=== PATIENT | male | born 1940 | race African-American/Black ===

== ENCOUNTER 2019-05-23 17:53 | Inpatient (IN) | payer OTHER ==
[~2019-05-23] VITALS: Ht 188 cm; Wt 108.0 kg
[~2019-05-23 17:53] MED LIST: TYLENOL325 MG ORAL
[2019-05-23 18:00] VITALS: BP 130/80
--- NOTE | 2019-05-23 18:00 | NUR ---
ED Nurse Note: pt brought in by ADRIAN from [facility] due to tachycardia. pt current HR on monitor is 123. per ems report, pt's roommate is currently being tested for CIVID19. result is still pending. pt is alert x3. noted with right sided weakness.
[2019-05-23] MEDS ORDERED: ALLOPURINOL100 M1 ORAL (18:04)
[2019-05-23] MEDS ORDERED: VITAMIN D310 MC1 PO (18:11)
[2019-05-23] MEDS ORDERED: METFORMIN HCL500 M1 ORAL (18:11)
[2019-05-23] MEDS ORDERED: ASPIRIN325 MG ORAL (18:11)
[2019-05-23] MEDS ORDERED: ZESTRIL20 MG ORAL (18:11)
[2019-05-23] MEDS ORDERED: POTASSIUM CHLO10 MEQ ORAL (18:11)
[2019-05-23] MEDS ORDERED: VITAMIN D34000 UNIT PO (18:11)
[2019-05-23] MEDS ORDERED: VITAMIN C500 M1 ORAL (18:11)
[2019-05-23] MEDS ORDERED: FUROSEMIDE20 M1 ORAL (18:11)
[2019-05-23] MEDS ORDERED: DEPAKOTE250 MG PO (18:11)
[2019-05-23] MEDS ORDERED: MULTIVITAMINS1 EAC8 ORAL (18:11)
[2019-05-23] MEDS ORDERED: ATORVASTATIN CA40 MG ORAL (18:11)
--- NOTE | 2019-05-23 18:16 | Emergency Room Report ---
History of Present Illness General Chief Complaint: General Complaint Source: Patient, Medical Record, EMS Present Illness HPI Patient presents from nursing facility was found to be tachycardic and the patient's roommate has Reportedly tested positive for covid-19 patient was also reported to have mild cough Denies any chest pain denies any vomiting or diarrhea denies any abdominal pain Allergies: Coded Allergies: No Known Allergies (Unverified , 01/11/16) COVID-19 Screening Contact w/high risk pt: Yes Recent Travel to affected area: No Experienced COVID-19 symptoms?: Yes COVID-19 symptoms experienced: Cough Patient History Past Medical History: see triage record Reviewed Nursing Documentation: PMH: Agreed; PSxH: Agreed Nursing Documentation-PMH Past Medical History: No History, Except For Hx Cardiac Problems: Yes - HLD, Peripheral vascular disease, Hx Hypertension: Yes Hx COPD: Yes Hx Diabetes: Yes Hx Cerebrovascular Accident: Yes Review of Systems All Other Systems: negative except mentioned in HPI Physical Exam Vital Signs Date Time Temp Pulse Resp B/P (MAP) Pulse Ox O2 Delivery O2 Flow Rate FiO2 05/23/19 17:53 137 18 129/82 (98) 05/23/19 18:00 98.6 99 Room Air Sp02 EP Interpretation: reviewed, normal General Appearance: no apparent distress Head: normocephalic, atraumatic Eyes: bilateral eye PERRL, bilateral eye EOMI ENT: hearing grossly normal, EOM grossly intact Neck: supple Respiratory: crackles - In both lower lobes Cardiovascular #1: tachycardia Gastrointestinal: non tender, soft Musculoskeletal: normal inspection Neurologic: alert Skin: no rash Lymphatic: normal inspection Procedures Critical Care Time Critical Care Time 50 minutes for critical presentation and concern for possible covid-19 concern for rapid deterioration and possible respiratory failure not including any procedural time Medical Decision Making Diagnostic Impression: Primary Impression: URI (upper respiratory infection) Additional Impressions: UTI (urinary tract infection) Sepsis ER Course Patient is a fairly complex patient with multiple differential to consideration including but not limited to cardiac cardiopulmonary and vascular emergencies Other differential such as infectious process, covid-19 also entertained Patient has blood work initiated testing performed Urine sample does show significant UTI patient's lactic acid was also elevated Further hydration was performed and admitted for further inpatient care Labs Test 05/23/19 18:20 White Blood Count 6.4 K/UL (4.8-10.8) Red Blood Count 5.09 M/UL (4.70-6.10) Hemoglobin 14.8 G/DL (14.2-18.0) Hematocrit 47.0 % (42.0-52.0) Mean Corpuscular Volume 92 FL (80-99) Mean Corpuscular Hemoglobin 29.1 PG (27.0-31.0) Mean Corpuscular Hemoglobin Concent 31.5 G/DL (32.0-36.0) Red Cell Distribution Width 14.8 % (11.6-14.8) Platelet Count 232 K/UL (150-450) Mean Platelet Volume 7.5 FL (6.5-10.1) Neutrophils (%) (Auto) 73.3 % (45.0-75.0) Lymphocytes (%) (Auto) 13.1 % (20.0-45.0) Monocytes (%) (Auto) 9.8 % (1.0-10.0) Eosinophils (%) (Auto) 1.6 % (0.0-3.0) Basophils (%) (Auto) 2.2 % (0.0-2.0) Urine Color Pale yellow Urine Appearance Turbid Urine pH 5 (4.5-8.0) Urine Specific [place] 1.010 (1.005-1.035) Urine Protein 2+ (NEGATIVE) Urine Glucose (UA) Negative (NEGATIVE) Urine Ketones 1+ (NEGATIVE) Urine Blood 5+ (NEGATIVE) Urine Nitrite Positive (NEGATIVE) Urine Bilirubin Negative (NEGATIVE) Urine Urobilinogen Normal MG/DL (0.0-1.0) Urine Leukocyte Esterase 3+ (NEGATIVE) Urine RBC Tntc /HPF (0 - 0) Urine WBC Tntc /HPF (0 - 0) Urine Squamous Epithelial Cells None /LPF (NONE/OCC) Urine Bacteria Moderate /HPF (NONE) Sodium Level 144 MMOL/L (136-145) Potassium Level 4.4 MMOL/L (3.5-5.1) Chloride Level 104 MMOL/L (98-107) Carbon Dioxide Level 28 MMOL/L (21-32) Anion Gap 13 mmol/L (5-15) Blood Urea Nitrogen 21 mg/dL (7-18) Creatinine 1.4 MG/DL (0.55-1.30) Estimat Glomerular Filtration Rate 59.3 mL/min (>60) Glucose Level 125 MG/DL (74-106) Lactic Acid Level 3.00 mmol/L (0.4-2.0) Calcium Level 9.7 MG/DL (8.5-10.1) Total Bilirubin 0.4 MG/DL (0.2-1.0) Aspartate Amino Transf (AST/SGOT) 18 U/L (15-37) Alanine Aminotransferase (ALT/SGPT) 25 U/L (12-78) Alkaline Phosphatase 96 U/L (46-116) Total Creatine Kinase 82 U/L (26-308) Creatine Kinase MB 0.9 NG/ML (0.0-3.6) Creatine Kinase MB Relative Index 1.0 Troponin I 0.005 ng/mL (0.000-0.056) Pro-B-Type Natriuretic Peptide 298 pg/mL (0-125) Total Protein 8.2 G/DL (6.4-8.2) Albumin 3.7 G/DL (3.4-5.0) Globulin 4.5 g/dL Albumin/Globulin Ratio 0.8 (1.0-2.7) Rhythm Strip Diag. Results EP Interpretation: yes Rate: 88 Rhythm: NSR, no PVC's, no ectopy Chest X-Ray Diagnostic Results Chest X-Ray Diagnostic Results : Chest X-Ray Ordered: Yes # of Views/Limited/Complete: 1 View Indication: Chest Pain EP Interpretation: Yes Interpretation: no consolidation, no effusion, no pneumothorax Impression: No acute disease - Cardiomegaly Electronically Signed by: Robin Summers DO Last Vital Signs Date Time Temp Pulse Resp B/P (MAP) Pulse Ox O2 Delivery O2 Flow Rate FiO2 05/23/19 18:00 123 18 Room Air 05/23/19 18:00 98.6 130/80 99 Status: improved Disposition: ADMITTED INPATIENT Condition: Serious Robin Summers DO May 23, 2019 18:16
--- NOTE | 2019-05-23 18:25 | NUR ---
ED Nurse Note: IV line established, pt on monitoring tech, blood sample, urine sample, Covid swab collected and sent down to sent down to lab .
--- NOTE | 2019-05-23 18:43 | NUR ---
ED Nurse Note: cxr being taken at bedside.
[2019-05-23 19:08] LABS: ANION GAP 13 mmol/L (5-15); BLOOD UREA NITROGEN 21 mg/dL (7-18); CALCIUM 9.7 MG/DL (8.5-10.1); CARBON DIOXIDE 28 MMOL/L (21-32); CHLORIDE 104 MMOL/L (98-107); CREATININE 1.4 MG/DL (0.55-1.30); POTASSIUM 4.4 MMOL/L (3.5-5.1); SODIUM 144 MMOL/L (136-145)
--- NOTE | 2019-05-23 19:10 | NUR ---
ED Nurse Note: report given ЕЛЕНА servin. endorsed plan opf care.
[2019-05-23 19:13] LABS: BASOPHILS % (AUTO) 2.2 % (0.0-2.0); EOSINOPHILS % (AUTO) 1.6 % (0.0-3.0); HEMOGLOBIN 14.8 G/DL (14.2-18.0); LYMPHOCYTES % (AUTO) 13.1 % (20.0-45.0); MEAN CORPUSCULAR VOLUME 92 FL (80-99); MONOCYTES % (AUTO) 9.8 % (1.0-10.0); NEUTROPHILS % (AUTO) 73.3 % (45.0-75.0); PLATELET COUNT 232 K/UL (150-450); RED BLOOD COUNT 5.09 M/UL (4.70-6.10); RED CELL DISTRIBUTION WIDTH 14.8 % (11.6-14.8); WHITE BLOOD COUNT 6.4 K/UL (4.8-10.8)
[2019-05-23 19:16] LABS: APPEARANCE,URINE TURBID; BILIRUBIN, URINE NEGATIVE (NEGATIVE); COLOR,URINE PALE YELLOW; GLUCOSE, URINE (UA) NEGATIVE (NEGATIVE); KETONES,URINE 1+ (NEGATIVE); LEUKOCYTE ESTERASE ,URINE 3+ (NEGATIVE); NITRITE,URINE POSITIVE (NEGATIVE); PH,URINE 5 (4.5-8.0); PROTEIN,URINE 2+ (NEGATIVE); UROBILINOGEN,URINE NORMAL MG/DL (0.0-1.0)
[2019-05-23 19:20] LABS: ALANINE AMINOTRANSFERASE 25 U/L (12-78); ALBUMIN 3.7 G/DL (3.4-5.0); ALBUMIN/GLOBULIN RATIO 0.8 (1.0-2.7); ALKALINE PHOSPHATASE 96 U/L (46-116); ASPARTATE AMINO TRANSFERASE 18 U/L (15-37); BILIRUBIN,TOTAL 0.4 MG/DL (0.2-1.0); CKMB 0.9 NG/ML (0.0-3.6); CREATINE KINASE 82 U/L (26-308)
[2019-05-23] MEDS ORDERED: Sodium Chloride 2,800 ML IVLG ONE (19:30)
[2019-05-23] MEDS ORDERED: cefTRIAXone 1 GM in NS 55 ML IVPB ONE (19:45)
--- NOTE | 2019-05-23 20:10 | NUR ---
ED Nurse Note: Lactic reflux #1 drawn and sent to lab
[2019-05-23 20:55] VITALS: BP 123/74
--- NOTE | 2019-05-23 21:47 | NUR ---
ED Nurse Note: Lactic reflux #2 drawn and sent to lab
[2019-05-23 22:44] VITALS: BP 132/76
--- NOTE | 2019-05-23 23:30 | NUR ---
ED Nurse Note: Pt resting in bed, vss no ss of distress noted. no adverse reactions noted.
--- NOTE | 2019-05-23 23:45 | NUR ---
ED Nurse Note: Pt placed in hospital bed. Vss no ss of distress noted.
[2019-05-24] VITALS (10 sets, daily range): BP systolic 108–151; BP diastolic 59–96
--- NOTE | 2019-05-24 01:12 | NUR ---
ED Nurse Note: pt resting in bed, vss no ss of distress noted.
--- NOTE | 2019-05-24 03:43 | NUR ---
ED Nurse Note: pt resting in bed, vss no ss of distress noted.
--- NOTE | 2019-05-24 05:55 | NUR ---
ED Nurse Note: pt resting in bed, vss no ss of distress noted. awaiting bed availablity.
--- NOTE | 2019-05-24 07:00 | NUR ---
ED Nurse Note: Received patient in bed, patient is alert awake resting in bed, patient on a monitor, vitals stable, see flowsheet.
[2019-05-24] MEDS ORDERED: cefTRIAXone 1 GM in NS 55 ML IVPB ONE (08:45)
--- NOTE | 2019-05-24 08:50 | NUR ---
ED Nurse Note: patient's HR is ST 120's, patient's rectal temp 102.6F, notified to Dr. Macedo. patient had 1 soft BM, cleaned him and kept him dry.
[2019-05-24] MEDS ORDERED: Acetaminophen 650 MG SUPP RECTAL ONE (09:00)
--- NOTE | 2019-05-24 09:46 | Diagnostic Imaging Report ---
Indication: Cough Technique: One view of the chest Comparison: none Findings: The heart is enlarged. Lungs and pleural spaces are clear. The aorta is tortuous and calcified. Upper mediastinum is prominent, probably due to ectatic vasculature and related to body habitus.. Impression: Cardiomegaly. No acute process
--- NOTE | 2019-05-24 09:48 | NUR ---
ED Nurse Note: Dr Thrasher at bedside.
--- NOTE | 2019-05-24 14:19 | NUR ---
ED Nurse Note: REPORT GIVEN TO ЕЛЕНА BARRIGA
--- NOTE | 2019-05-24 14:25 | NUR ---
ED Nurse Note: patient transferred to SDU on ACLS protocol on a library monitor, with all of his belongings. report given to Karlie Golden, endorsed all plan of care to Karlie GOLDEN.
--- NOTE | 2019-05-24 14:45 | NUR ---
NURSE NOTES: Received report from Germaine Rojas RN. Patient admitted to SDU for URI/COVID-19 r/o. Patient alert to name only, confused, combative, uncooperative. ST 104 on ekg monitor tech. On room air, respirations even and unlabored. Patient is incontinent of bowel and bladder, noted with MASD on sacral and scrotal area. Condom catheter placed. Cydney-care done. Left AC 20g saline lock patent and asymptomatic. Patient placed on droplet/contact precautions for COVID r/o. Bed locked in lowest position with side rails up x 3. All needs attended to. Call light within reach. Will continue to monitor. Dr. Thrasher contacted for admission orders.
[2019-05-24] MEDS: Piperacillin/Tazobactam 3.375 GM in NS 110 ML IVPB SCH ×2 (17:40→21:12)
[2019-05-24] MEDS: metFORMIN 500mg tab ORAL SCH (17:40)
--- NOTE | 2019-05-24 19:14 | NUR ---
HAND-OFF: Report given to Tanja Moody RN, using SBAR.
--- NOTE | 2019-05-24 19:28 | NUR ---
NURSE NOTES: Received report form
--- NOTE | 2019-05-24 19:28 | NUR ---
NURSE NOTES: Received report from Chico Escobar, pt. in bed awake, pt. appears to be a/o x's 2- able to make needs known, no signs or symptoms of acute cardiac or respiratory distress noted, bed alarm on, side rails up x's3 and safety brakes engaged, pt. appears to be sating well on room air- no distress noted, pt. has condom cath intact and draining to gravity, LAC 20G IV intact and patent running NS at 75cc/hr, HOB elevated, safety measures continued, will continue with plan of care.
[2019-05-24] MEDS: Heparin 5000 units/ml inj SUBQ SCH (21:15)
[2019-05-24] MEDS: Atorvastatin 80mg tab ORAL SCH (21:15)
--- NOTE | 2019-05-24 21:22 | NUR ---
NURSE NOTES: patients IV is at LAC- IV continues to beep as pt. bends arm- tried inserting another IV- pt. becoming increasingly combative swinging his arm trying to strike me- and not allowing me to insert IV.
--- NOTE | 2019-05-24 21:30 | NUR ---
NURSE: patients IV is at LAC- IV continues to beep as pt. bends arm- tried inserting another IV- pt. becoming increasingly combative swinging his arm trying to strike me- and not allowing me to insert IV- Left message for DR. Thrasher- awaiting for call back from doctor.
--- NOTE | 2019-05-24 21:32 | NUR ---
NURSE NOTES: Trying to complete shift mandatory- pt. states he does not wear dentures- and belonging list not found in chart- pt. is wearing prescription glasses.
[2019-05-25] VITALS: BP 142/73
--- NOTE | 2019-05-25 03:49 | NUR ---
NURSE NOTES: pt. refused lab work- and asked to be left alone- pt. teaching done - pt. continued, to refuse to get blood work done and becoming combative if asked to have blood work done.
[2019-05-25 04:00] VITALS: BP 139/71
[2019-05-25] MEDS: Piperacillin/Tazobactam 3.375 GM in NS 110 ML IVPB SCH ×3 (05:03→21:26)
--- NOTE | 2019-05-25 07:04 | NUR ---
HAND-OFF: Report given to Adam Rn, pt. remains stable and no signs of distress noted. Nurse aware to f/u on any abnormal am labs.
--- NOTE | 2019-05-25 07:14 | NUR ---
HAND-OFF: Report given to Chico Armendariz, pt. remains stable and no signs of distress noted. Nurse aware to f/u on any abnormal am labs. Assignment changed.
[2019-05-25 08:00] VITALS: BP 156/72
--- NOTE | 2019-05-25 08:51 | NUR ---
NURSE NOTES: Dr. Thrasher was notified positive COVID-19 by night RN,will notify Dr. Conrad positive blood culture
[2019-05-25] MEDS: Lisinopril 20mg tab ORAL SCH (09:00)
--- NOTE | 2019-05-25 09:26 | NUR ---
RD ASSESSMENT & RECOMMENDATIONS SEE CARE ACTIVITY FOR COMPLETE ASSESSMENT DAILY ESTIMATED NEEDS: Needs based on Cardiac, DM, sepsis 92gk abw 20-25 kcals/kg 8183-4172 total kcals 1-2 g protein/kg 92-184 g total protein Fluid per MD, on lasix NUTRITION DIAGNOSIS: Increased pro needs r/t sepsis and wound care as evidenced by febrile on adm (102.6), elev LA, pt w/ sacral and scrotal skin breakdown, h/o CVA, eval is pending. CURRENT DIET: CCHO MED PO DIET RECOMMENDATIONS: CCHO MED/ Low Na diet ADDITIONAL RECOMMENDATIONS: 1) On lasix, maintain calibrated bed scale wts 2) Updated lytes as able 3) Rec NISS w/ bed side BG checking, -> Obtain HgA1C for eval 4) H/o CVA, consider ADVERTISING ACCOUNT EXECUTIVE eval for appropriate texture 5) Wound care: F/up w/ eval-> add WILLOW BID 6) Monitor po intake, need for snacks/ supplements
--- NOTE | 2019-05-25 09:57 | NUR ---
CASE MANAGEMENT:REVIEW 05/23/19 @753 [id number] YR OLD MALE BIBA FROM [facility] CC: TACHYCARDIA. ROOMMATE HOSPITALIZED TO R/O COVID-19 SI: URI.SEPSIS. UTI. EVALUATE FOR COVID-19 102.6 137 18 108/59 99% ON RA BUN+21 CR+1.4 LACTIC ACID+3.00 AND 3.60 IS: 2L NS BOLUS IV ROCEPHIN URINE CX CHEST XRAY BLOOD CX COVID-19 : TO STEPDOWN UNIT ON 05/24/19 @ 1406 DCP: FROM [facility] Addendum: 05/25/19 at 1024 by DENNY MATHEWS LVN LVN 05/25/19...ADDENDUM.....COVID-19 POSITIVE
[2019-05-25] MEDS ORDERED: Azithromycin 250mg tab ORAL SCH (10:00)
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
[2019-05-25] MEDS: Ascorbic Acid 500mg tab ORAL SCH (10:37)
[2019-05-25] MEDS: Multivitamin w/Minerals tab ORAL SCH (10:37)
[2019-05-25] MEDS: metFORMIN 500mg tab ORAL SCH ×3 (10:39→18:12)
[2019-05-25] MEDS: Allopurinol 100mg Tab ORAL SCH (10:40)
[2019-05-25] MEDS: Heparin 5000 units/ml inj SUBQ SCH ×2 (10:43→20:04)
--- NOTE | 2019-05-25 10:54 | NUR ---
*-* INSURANCE *-* ALL CLINICALS AND REVIEWS HAVE BEEN FAXED TO: [employer] REF#[id number] CM: OMER # [phone] EXT [id number] FAX# [phone] REVIEWS/CLINICALS
[2019-05-25 12:00] VITALS: BP 131/71
[2019-05-25] MEDS: Vancomycin 750 MG in NS 275 ML IVPB SCH (14:20)
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
--- NOTE | 2019-05-25 17:18 | NUR ---
NURSE NOTES:WOUND CARE NOTES:Pt presented on admission with mixed pink epithelial and partial thickness shearing sacrum ,L buttocks and R ischium. Tx.Plan: Apply Moisture Barrier Paste to buttocks with Each incontinence care. Cover Sacrum with Optifoam drsg. Change every 3 days and prn. Apply Cavilon Skin Barrier to both heels. Cover each heel with Optifoam drsg. Change every 7 days and prn. Reposition at least every 2hours or as tolerated. Off-load heels with pillow.
--- NOTE | 2019-05-25 19:10 | NUR ---
NURSE NOTES: Received report from Chico Armendariz, pt. in bed awake, pt. appears to be a/o x's 2- able to make needs known, no signs or symptoms of acute cardiac or respiratory distress noted, bed alarm on, side rails up x's3 and safety brakes engaged, comfort measures provided, pt. appears to be sating well on room air- no distress noted, pt. has condom cath intact and draining to gravity, LAC 20G IV intact and patent, Lt. hand 24G IV intact and patent running NS at 75cc/hr, HOB elevated, safety measures continued, will continue with plan of care.
[2019-05-25 20:00] VITALS: BP 108/58
[2019-05-25] MEDS: Atorvastatin 80mg tab ORAL SCH (20:04)
[2019-05-26] VITALS (7 sets, daily range): BP systolic 119–154; BP diastolic 59–93
[2019-05-26] MEDS: Vancomycin 750 MG in NS 275 ML IVPB SCH (01:28)
--- NOTE | 2019-05-26 02:14 | NUR ---
NURSE NOTES: During rounds pt. noted to have a fever- warm to touch, temp 102.4 orally- Tylenol administered and cooling measures provided- will continue to monitor pt. and with plan of care. Pt. remains stable.
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
[2019-05-26] MEDS: Piperacillin/Tazobactam 3.375 GM in NS 110 ML IVPB SCH ×3 (05:19→21:37)
--- NOTE | 2019-05-26 05:29 | NUR ---
NURSE NOTES: Attempted to draw labs for blood work with another nurse Rosa who attempted- the draw- unsuccessful as pt. is being combative and swinging arm up to strike- tried couple attempts- but unsuccessful- also during attempt patients IV from Left hand 24G came out at bedside- pt. does have another IV at . , but not allowing me to insert another IV and becoming increasingly combative. Will notify lab to try lab draw.
--- NOTE | 2019-05-26 06:53 | NUR ---
HAND-OFF: Report given to Aris Rn, pt. remains stable and no signs of distress noted. Nurse aware to f/u on any abnormal am labs.
--- NOTE | 2019-05-26 07:25 | NUR ---
NURSE NOTES: Dr. Thrasher at nurse station, informed MD that patient refused lactic acid labs this morning. Dr. Thrasher acknowledged, no new orders at this time. Will continue to monitor patient.
[2019-05-26] MEDS: Heparin 5000 units/ml inj SUBQ SCH ×2 (08:57→20:40)
--- NOTE | 2019-05-26 08:59 | General Progress Note ---
Assessment/Plan Problem List: (1) COVID-19 virus detected ICD Codes: U07.1 - COVID-19 SNOMED: 702797398 (2) Facial laceration ICD Codes: S01.81XA - Laceration without foreign body of other part of head, initial encounter SNOMED: 406802551 (3) Status post CVA ICD Codes: Z86.73 - Personal history of transient ischemic attack (TIA), and cerebral infarction without residual deficits SNOMED: 585413419 (4) Sepsis ICD Codes: A41.9 - Sepsis, unspecified organism SNOMED: 12245854 (5) UTI (urinary tract infection) ICD Codes: N39.0 - Urinary tract infection, site not specified SNOMED: 60989921 (6) SOB (shortness of breath) ICD Codes: R06.02 - Shortness of breath SNOMED: 522048056 Status: stable Assessment/Plan: abx per id follow up cultures hydroxychloriqine and azithromax for covid o2 resp rx as needed bp rx antiplt rx Subjective ROS Limited/Unobtainable: No Constitutional: Reports: malaise, weakness HEENT: Reports: no symptoms Cardiovascular: Reports: no symptoms Respiratory: Reports: cough Gastrointestinal/Abdominal: Reports: no symptoms Genitourinary: Reports: no symptoms Neurologic/Psychiatric: Reports: anxiety, emotional problems, pre-existing deficit Endocrine: Reports: no symptoms Hematologic/Lymphatic: Reports: no symptoms Allergies: Coded Allergies: No Known Allergies (Unverified , 01/11/16) All Systems: reviewed and negative except above Subjective There are no overnight events. Patient continues to spike intermittent fevers. He has been compliant with medications but is refusing his labs this morning. He has a mild nonproductive cough. He denies any chest pain or shortness of breath. Cardiology and ID noted. Objective Last 24 Hour Vital Signs Date Time Temp Pulse Resp B/P (MAP) Pulse Ox O2 Delivery O2 Flow Rate FiO2 05/26/19 04:00 Room Air 05/26/19 04:00 99.9 114 18 126/69 (88) 97 05/26/19 03:34 111 05/26/19 02:46 100.3 05/26/19 02:46 100.3 05/26/19 02:13 102.4 05/26/19 00:00 Room Air 05/26/19 00:00 98.0 94 18 119/68 (85) 96 05/25/19 23:31 117 05/25/19 20:00 Room Air 05/25/19 20:00 98.1 109 18 108/58 (75) 95 05/25/19 19:04 92 05/25/19 16:00 Room Air 05/25/19 16:00 105 05/25/19 12:00 Room Air 05/25/19 12:00 98.0 105 17 131/71 (91) 94 05/25/19 11:29 107 05/25/19 09:00 156/76 Intake and Output 05/25/19 05/26/19 19:00 07:00 Intake Total 300 ml 1251.666 ml Output Total 400 ml Balance 300 ml 851.666 ml Intake Oral 225 ml IV Total 75 ml 1251.666 ml Output Urine Total 400 ml # Voids 2 2 # Bowel Movements 3 3 Height (Feet): 6 Height (Inches): 2.00 Weight (Pounds): 238 General Appearance: WD/WN, alert, obese Neck: supple Cardiovascular: normal rate Respiratory/Chest: chest wall non-tender, lungs clear, normal breath sounds, no respiratory distress, no accessory muscle use Abdomen: normal bowel sounds, non tender, soft, no organomegaly, no mass Edema: no edema noted Arm (L), no edema noted Arm (R), no edema noted Leg (L), no edema noted Leg (R), no edema noted Pedal (L), no edema noted Pedal (R), no edema noted Generalized Edema: trace edema Neurologic: responsive, motor weakness Elian Thrasher MD May 26, 2019 08:59
[2019-05-26] MEDS: Azithromycin 250mg tab ORAL SCH (09:12)
[2019-05-26] MEDS: Multivitamin w/Minerals tab ORAL SCH (09:12)
[2019-05-26] MEDS: Ascorbic Acid 500mg tab ORAL SCH (09:13)
[2019-05-26] MEDS: Allopurinol 100mg Tab ORAL SCH (09:13)
[2019-05-26] MEDS: metFORMIN 500mg tab ORAL SCH ×3 (09:13→17:50)
[2019-05-26] MEDS: Lisinopril 20mg tab ORAL SCH (09:13)
--- NOTE | 2019-05-26 10:32 | NUR ---
NURSE NOTES: Dr. Frieda Diamond at nurse station made aware of positive ESBL urine. Dr. Frieda Diamond acknowledged and gave no new orders at this time. Will continue to monitor patient.
--- NOTE | 2019-05-26 10:57 | Infectious Diseases Prog Note ---
Assessment/Plan Assessment/Plan A; 1. COVID-19 disease 2. Urinary tract infection with E.coli 3. Positive blood culture likely contaminatiion 4. Diabetes. 5. Hypertension. 6. Chronic obstructive pulmonary disease. PLAN: 1. Continue hydroxychloroquine and azithromycin. 2. Continue contact isolation. 3. Continue Zosyn. 4. Discontinue IV vancomycin. Subjective ROS Limited/Unobtainable: Yes Respiratory: Reports: dry cough; Denies: productive cough Allergies: Coded Allergies: No Known Allergies (Unverified , 01/11/16) Objective Vital Signs Last 24 Hour Vital Signs Date Time Temp Pulse Resp B/P (MAP) Pulse Ox O2 Delivery O2 Flow Rate FiO2 05/26/19 09:13 136/93 05/26/19 08:00 102 05/26/19 08:00 Room Air 05/26/19 08:00 99.5 117 18 136/93 (107) 97 05/26/19 04:00 Room Air 05/26/19 04:00 99.9 114 18 126/69 (88) 97 05/26/19 03:34 111 05/26/19 02:46 100.3 05/26/19 02:46 100.3 05/26/19 02:13 102.4 05/26/19 00:00 Room Air 05/26/19 00:00 98.0 94 18 119/68 (85) 96 05/25/19 23:31 117 05/25/19 20:00 Room Air 05/25/19 20:00 98.1 109 18 108/58 (75) 95 05/25/19 19:04 92 05/25/19 16:00 Room Air 05/25/19 16:00 105 05/25/19 12:00 Room Air 05/25/19 12:00 98.0 105 17 131/71 (91) 94 05/25/19 11:29 107 Height (Feet): 6 Height (Inches): 2.00 Weight (Pounds): 238 General Appearance: no acute distress HEENT: mucous membranes moist Respiratory/Chest: lungs clear Cardiovascular: normal rate Abdomen: soft, non tender Extremities: no edema Neurologic/Psychiatric: motor weakness, aphasia, other - in right side Microbiology Date/Time Source Procedure Growth Status 05/23/19 18:20 Blood Blood Culture - Preliminary NO GROWTH AFTER 48 HOURS Resulted 05/23/19 18:05 Blood Blood Culture - Preliminary Staphylococcus Sp Coag Neg Resulted 05/23/19 19:00 Nasopharynx Coronavirus COVID-19 PCR (JS) - Final Complete 05/23/19 18:25 Nasal Nares - Final Complete 05/23/19 18:25 Nasal Nares - Final Complete 05/23/19 18:20 Urine,Clean Catch Urine Culture - Final Escherichia Coli - Esbl Complete Laboratory Tests Test 05/26/19 09:50 Lactic Acid Level Pending Current Medications Medications (Trade) Dose Ordered Sig/Julita Route PRN Reason Start Time Stop Time Status Last Admin Dose Admin Acetaminophen (Tylenol) 650 mg Q6H PRN ORAL Prn Pain/Headache/Temp > 101 05/24/19 15:00 06/23/19 14:59 05/26/19 02:16 Allopurinol (Zyloprim) 100 mg DAILY ORAL 05/25/19 09:00 06/24/19 08:59 05/26/19 09:13 Ascorbic Acid (Vitamin C) 500 mg DAILY ORAL 05/25/19 09:00 06/24/19 08:59 05/26/19 09:13 Aspirin (ASA) 325 mg DAILY ORAL 05/25/19 09:00 07/09/19 08:59 05/26/19 09:13 Atorvastatin Calcium (Lipitor) 40 mg BEDTIME ORAL 05/24/19 21:00 08/22/19 20:59 05/25/19 20:04 Azithromycin (Zithromax) 250 mg DAILY ORAL 05/26/19 09:00 05/29/19 09:01 05/26/19 09:12 Divalproex Sodium (Depakote) 250 mg THREE TIMES A DAY ORAL 05/24/19 18:00 06/23/19 17:59 05/26/19 09:14 Heparin Sodium (Porcine) (Heparin 5000 units/ml) 5,000 units EVERY 12 HOURS SUBQ 05/24/19 21:00 07/08/19 20:59 05/25/19 20:04 Hydroxychloroquine Sulfate (Plaquenil) 200 mg BID ORAL 05/26/19 09:00 05/29/19 18:01 05/26/19 09:13 Lisinopril (PriniviL) 20 mg DAILY ORAL 05/25/19 09:00 06/24/19 08:59 05/26/19 09:13 Metformin HCl (Glucophage) 500 mg THREE TIMES A DAY ORAL 05/24/19 18:00 06/23/19 17:59 05/26/19 09:13 Multivitamins Therapeutic (Therapeutic Multivitamin) 1 ea DAILY ORAL 05/25/19 09:00 06/24/19 08:59 05/26/19 09:12 Piperacillin Sod/ Tazobactam Sod 3.375 gm/Sodium Chloride 110 ml @ 27.5 mls/hr EVERY 8 HOURS IVPB 05/24/19 15:00 05/29/19 14:59 05/26/19 05:19 Potassium Chloride (K-Dur) 10 meq DAILY ORAL 05/25/19 09:46 08/23/19 09:45 05/26/19 09:13 Sodium Chloride 1,000 ml @ 75 mls/hr [id number] IV 05/24/19 15:00 06/23/19 14:59 05/26/19 05:20 Vancomycin HCl (Vanco rx to dose) 1 ea DAILY PRN MISC Per rx protocol 05/25/19 10:45 06/24/19 10:44 Vancomycin HCl 750 mg/Sodium Chloride 275 ml @ 183.333 mls/hr Q12HR@0100,1300 IVPB 05/25/19 13:00 05/30/19 12:59 05/26/19 01:28 Juancho Diamond MD May 26, 2019 10:57
--- NOTE | 2019-05-26 11:48 | Consultation ---
Consult Note Consult Note DATE OF CONSULTATION: 05/26/2019 PULMONARY CONSULTATION CONSULTING PHYSICIAN: Ryan Quiroga M.D. REFERRING PHYSICIAN: Elian Thrasher M.D. REASON FOR CONSULTATION: COVID-19 pneumonia HISTORY OF PRESENTING ILLNESS: This is a 79-year-old gentleman who was at a [facility] facility where there has been an outbreak of COVID-19. He was found to be tachycardic. A chest x-ray was clear, but now he has been tested for COVID-19 and has been having fevers. Currently he is saturating well on low flow O2. PAST MEDICAL HISTORY: 1. History of hypertension. 2. Diabetes. 3. COPD. 4. Chronic kidney disease. 5. Stroke. SOCIAL HISTORY: He is a smoker. No history of alcohol and drug use. FAMILY HISTORY: Noncontributory. REVIEW OF SYSTEMS: Unable to obtain currently. MEDICATIONS: As an inpatient, he is on potassium, allopurinol, ascorbic acid, aspirin, Lasix, lisinopril, multivitamin, Lipitor, subcutaneous heparin, Depakote, metformin, Tylenol, Zosyn. ALLERGIES: No known drug allergies. PHYSICAL EXAMINATION: VITAL SIGNS: Temperature 98.2, T-max of 102.6, pulse 106, respiratory rate 18, and blood pressure 139/71. O2 saturation of 98%. LABORATORY AND DIAGNOSTIC DATA: White count 6.4, hemoglobin 14.8, hematocrit 47, MCV 92, platelet count 232,000 with neutrophils of 73%. Sodium 144, potassium 4.4, chloride 104, bicarb 28, BUN 21, creatinine 1.4. Glucose 125. Calcium 9.7. Total bilirubin 0.4, AST 18, ALT 25, alkaline phosphatase 96. CK of 82, CK-MB 0.9. Troponin 0.005. Beta natriuretic peptide 298. Total protein 8.2, albumin 3.7. UA is showing too numerous to count white cells. Coronavirus-19 PCR is positive. Nasal swab was negative for influenza A and B. Urine culture is showing ESBL E.coli. Blood culture is showing gram-positive cocci. Chest x-ray is showing no acute process. ASSESSMENT: This is a 79-year-old custodial resident with history of diabetes, hypertension, stroke, chronic obstructive pulmonary disease 1. COVID-19 pneumonia. 2. ESBL E.coli UTI 3. Positive blood cultures with gram-positive cocci. 4. Diabetes. 5. Hypertension. 6. Chronic obstructive pulmonary disease. PLAN: 1. Continue hydroxychloroquine and azithromycin. 2. Continue isolation. 3. Continue Zosyn and VAnco 4. O2 and pulmonary hygiene. Ryan Quiroga M.D. Ryan Quiroga MD May 26, 2019 11:48
--- NOTE | 2019-05-26 11:57 | NUR ---
*-* INSURANCE *-* ALL CLINICALS AND REVIEWS HAVE BEEN FAXED TO: [facility] REF#[id number] CM: OMER # [phone] EXT [phone] FAX# [phone] REVIEWS/CLINICALS
--- NOTE | 2019-05-26 13:24 | NUR ---
CASE MANAGEMENT: REVIEW 05/26/2019 SI:COVID-19 virus detected. Facial laceration. VS: T 102.4 HR 111 RR 18 B/P 126/69 SATS 97% ON RA LABS: LACTIC ACID 1 IS:NS @ 75 ML/HR ZOSYN IV Q8H LIPITOR POQHS PLAQUENIL PO BID ALLOPURINOL PO QD ASA PO QD LISINOPRIL PO QD AZITHROMYCIN PO QD K DUR PO QD DEPAKOTE PO TID SDU PLAN OF CARE: COVID TESTING ISO PRECAUTIONS
[2019-05-26] MEDS: Depakote 125mg Sprinkles ORAL SCH ×2 (13:30→17:50)
--- NOTE | 2019-05-26 18:15 | Consultation ---
DATE OF CONSULTATION: 05/26/2019 PULMONARY CONSULTATION CONSULTING PHYSICIAN: Christian Jurado M.D. REASON FOR CONSULTATION: COVID positive. HISTORY OF PRESENT ILLNESS: This is a 79-year-old male. The patient presented from the [facility]. The patient with an outbreak of COVID-19 and the patient now admitted and proved to be COVID positive. X-ray was clear. The patient with mild cough and fevers. Overall, the patient is admitted, on isolation. I was called to assist and evaluate. The patient also has underlying COPD. I was asked to follow up from a pulmonary standpoint and monitor and recommend further. The patient's medications were reviewed. The care was discussed with nursing staff. Care was discussed with primary care doctor and Infectious Disease. The patient's overall medication regimen reviewed. Allergies reviewed. PAST MEDICAL HISTORY: Notable for hypertension, diabetes, COPD, chronic kidney disease, stroke. SOCIAL HISTORY: The patient does have a smoking history. Nondrinker. longterm patient. FAMILY HISTORY: Noncontributory due to the above.. REVIEW OF SYSTEMS: Unable to obtain at present. MEDICATIONS: Reviewed and reconciled. ALLERGIES: Reviewed and reconciled. PHYSICAL EXAMINATION: GENERAL: Well-developed male. VITAL SIGNS: The patient with still persistent fevers up to 102.4, heart rate 117, blood pressure 136/93, respiratory rate 18, sats 97%. HEENT: Negative. Extraocular movements are grossly intact. Oropharynx is moist. NECK: Supple. No jugular venous distention. LUNGS: With moderate air entry. Occasional wheeze. CARDIAC: S1, S2. Tachycardic without murmurs, rubs, or gallops. ABDOMEN: Soft, nontender, nondistended. EXTREMITIES: No cyanosis, clubbing, or edema. NEUROLOGIC: The patient is grossly nonfocal. LABORATORY DATA: Reviewed and notable for an essentially normal CBC. Chem-panel, lactic acid of 3.6, BUN 21, creatinine 1.4. BNP 298. X-ray fairly negative. IMPRESSION: 1. COVID positive. 2. Persistent fever. 3. Associated sinus tachycardia. 4. Lactic acidemia. 5. UTI. 6. Positive blood cultures. 7. Diabetes. 8. Hypertension. 9. COPD without any clear exacerbation. RECOMMENDATIONS: 1. Supportive care. 2. Per Infectious Disease, hydroxychloroquine and azithromycin. 3. Contact isolation. 4. DVT prophylaxis. 5. Empiric antibiotics for urinary tract infection. 6. Respiratory care as outlined. Avoid nebulized therapy if possible to avoid aerosolization. 7. Monitor clinically for changes. 8. DVT prophylaxis and statin use for now. 9. We will follow clinically for changes to assist for any pulmonary deterioration on an as-needed basis. Christian Jurado M.D. DR: CITLALI JOB#: [id number] CC:
--- NOTE | 2019-05-26 19:09 | NUR ---
HAND-OFF: Report given to ЕЛЕНА Reynolds.
--- NOTE | 2019-05-26 19:11 | NUR ---
NURSE NOTES: Received report from Aris Rn, pt. in bed awake, pt. appears to be a/o x's 2- able to make needs known, no signs or symptoms of acute cardiac or respiratory distress noted, bed alarm on, side rails up x's3 and safety brakes engaged, comfort measures provided, pt. appears to be sating well on room air- no distress noted, LAC 20G IV intact and patent, Rt. 24G thumb running NS at 75cc/hr, HOB elevated, safety measures continued, comfort measures provided, will continue with plan of care.
--- NOTE | 2019-05-26 20:10 | NUR ---
NURSE NOTES: pt. has temp attempted to do cooling measures pt. refusing and throwing cold packs on floor- blankets removed off patient -will continue to monitor pt. and with plan of care.
[2019-05-26] MEDS: Atorvastatin 80mg tab ORAL SCH (20:11)
--- NOTE | 2019-05-26 20:30 | NUR ---
NURSE NOTES: notified Alexsander at pharmacy regarding dropped a Heparin bottle in patients room but unable to locate- per Alexsander campbell to pull out another heparin and return when found. Also pulled out Acetaminophen but too administer so wasted with another RN Melvin as it was already crushed.
--- NOTE | 2019-05-26 21:40 | NUR ---
NURSE NOTES: first Heparin- pulled out- found was stuck at foot of bed- returned to [facility].
[2019-05-27] VITALS (9 sets, daily range): BP systolic 111–142; BP diastolic 54–91
--- NOTE | 2019-05-27 00:15 | Progress Note ---
DATE: 05/26/2019 CARDIOLOGY PROGRESS NOTE SUBJECTIVE: No new events. Episodic fever spikes. Some cough and congestion. Monitored rhythm, sinus. QT interval remains unchanged. OBJECTIVE: VITAL SIGNS: Blood pressure 126/69, pulse 114, respirations 18, and T max 102.4. LUNGS: Scattered rhonchi. Good breath sounds. HEART: Regular rhythm. Rapid rate. Normal S1, S2. ABDOMEN: Soft. EXTREMITIES: No edema. LABORATORY DATA: Lactic acid is 1. IMPRESSION: 1. COVID-19 infection. 2. Lactic acidosis, recovered. 3. Sinus tachycardia. 4. Sepsis. 5. Hypertensive heart disease. 6. History of hyperlipidemia. PLAN: 1. Respiratory therapy. 2. Hold diuretics. 3. Continue to monitor QT interval while on hydroxychloroquine regimen. 4. Recheck chemistry panel. 5. Maintain therapeutic potassium and magnesium levels. Mateus Styles M.D. DR: PERLITA JOB#: [id number] CC:
--- NOTE | 2019-05-27 01:50 | NUR ---
NURSE NOTES: pt. showing sinus tachycardia on monitor- 140's- 150's assessed pt. - pt. stating he feels okay-no signs of distress noted, VS taken- EKG done- report showing A FIb with RVR- message left by Brad Golden- to DR. Styles- awaiting for call back from doctor. Will continue to monitor pt.
--- NOTE | 2019-05-27 02:16 | NUR ---
NURSE NOTES: Patient is in Afib w RVR with HR ranging through the 140s-170s. 12 lead EKG was taken and also showed Afib w/RVR. Blood pressure was 145/67 during Afib /RVR. Patient seems to be asymptomatic. Called Dr. Styles and left message regarding this event.
--- NOTE | 2019-05-27 02:19 | NUR ---
NURSE NOTES: Dr. Styles called back and again updated him on patients Afib with RVR events. Orders given for Cardizem 20mg IVP one time.
[2019-05-27] MEDS ORDERED: dilTIAZem HCl 25mg/5ml Inj IVP SCH (02:30)
--- NOTE | 2019-05-27 03:11 | NUR ---
NURSE NOTES: pt remains stable- heart rate 113-118- pt. remains stable and no signs of distress noted. Will continue to monitor pt. and with plan of care.
--- NOTE | 2019-05-27 03:14 | NUR ---
NURSE NOTES: attempted several times to do blood draw but unsuccessful- notified Govind- shear scrapman- but unable to draw- per his director.
[2019-05-27] MEDS: Piperacillin/Tazobactam 3.375 GM in NS 110 ML IVPB SCH ×3 (05:05→22:22)
--- NOTE | 2019-05-27 06:53 | NUR ---
HAND-OFF: Report given to Aris, Rn, pt. remains stable and no signs of distress noted. Nurse aware to f/u with lab to draw labs and f/u with DR. Styles regarding heart rate in 130's to 140's even after Cardizem IV push.
--- NOTE | 2019-05-27 07:06 | NUR ---
NURSE NOTES: Received report from ЕЛЕНА Reynolds. Patient is resting in bed, no distress noted. Sleeping, breathing is even and unlabored on room air. Observed no presence of pain or discomfort at this time. Per night nurse patient's heart rate was noted elevated and irregular heart rhythm. 12 lead EKG done, results read: "Atrial fibrillation with rapid ventricular response with premature ventricular or aberrantly conducted complexes.; Low voltage QRS." Rhythm strip in chart. Per night nurse Dr. Styles contacted and one time order of Cardizem 20 mg IV given. Patient heart rate on monitor still noted at 140s, irregular heart rhythm. Dr. Thrasher is at nurse state and made aware of situation. VS 134/[address] Thrasher do not need to do another 12 lead EKG at this time monitor on cardiac technologist, per MD will order Cardizem scheduled, informed MD morning labs not done yet - acknowledged. Will continue to monitor patient at this time.
--- NOTE | 2019-05-27 07:40 | General Progress Note ---
Assessment/Plan Problem List: (1) COVID-19 virus detected ICD Codes: U07.1 - COVID-19 SNOMED: 608186110 (2) Facial laceration ICD Codes: S01.81XA - Laceration without foreign body of other part of head, initial encounter SNOMED: 582601153 (3) Status post CVA ICD Codes: Z86.73 - Personal history of transient ischemic attack (TIA), and cerebral infarction without residual deficits SNOMED: 978326309 (4) Sepsis ICD Codes: A41.9 - Sepsis, unspecified organism SNOMED: 71895835 (5) UTI (urinary tract infection) ICD Codes: N39.0 - Urinary tract infection, site not specified SNOMED: 50793883 (6) SOB (shortness of breath) ICD Codes: R06.02 - Shortness of breath SNOMED: 625906277 Status: stable Assessment/Plan: abx per id follow up cultures hydroxychloriqine and azithromax for covid o2 resp rx as needed bp rx antiplt rx cardizem rx to d/w cards anticoagulation d/w poa perri- update on test results(covid+) and current rx plans Subjective ROS Limited/Unobtainable: No Constitutional: Reports: malaise, weakness HEENT: Reports: no symptoms Cardiovascular: Reports: no symptoms Respiratory: Reports: cough Gastrointestinal/Abdominal: Reports: no symptoms Genitourinary: Reports: no symptoms Neurologic/Psychiatric: Reports: no symptoms Endocrine: Reports: no symptoms Hematologic/Lymphatic: Reports: no symptoms Allergies: Coded Allergies: No Known Allergies (Unverified , 01/11/16) All Systems: reviewed and negative except above Subjective afib with rvr last night. just converted to sinus. still with cough. no cp/sob. still with fevers last night Objective Last 24 Hour Vital Signs Date Time Temp Pulse Resp B/P (MAP) Pulse Ox O2 Delivery O2 Flow Rate FiO2 05/27/19 04:00 98.9 112 18 135/73 (93) 96 05/27/19 04:00 Room Air 05/27/19 03:39 116 05/27/19 02:50 114 05/27/19 02:40 116 18 111/76 (88) 96 05/27/19 02:33 132 133/85 05/27/19 02:30 148 05/27/19 02:21 132 133/85 (101) 05/27/19 02:00 140 05/27/19 00:44 100.2 05/27/19 00:00 Room Air 05/27/19 00:00 92 05/27/19 00:00 101.2 85 18 142/68 (92) 96 05/26/19 20:42 102.2 92 18 154/88 (110) 96 05/26/19 20:00 102.2 92 18 154/88 (110) 96 05/26/19 20:00 Room Air 05/26/19 19:44 99 05/26/19 16:00 Room Air 05/26/19 16:00 89 05/26/19 16:00 99.1 95 18 121/59 (79) 95 05/26/19 12:00 98.6 94 18 137/72 (93) 97 05/26/19 12:00 Room Air 05/26/19 12:00 102 05/26/19 09:13 136/93 05/26/19 08:00 102 05/26/19 08:00 Room Air 05/26/19 08:00 99.5 117 18 136/93 (107) 97 Intake and Output 05/26/19 05/27/19 19:00 07:00 Intake Total 575 ml 954.5 ml Balance 575 ml 954.5 ml Intake Oral 500 ml IV Total 75 ml 954.5 ml # Voids 2 3 # Bowel Movements 3 4 Laboratory Tests 05/26/19 09:50: Lactic Acid Level 1.00 Height (Feet): 6 Height (Inches): 2.00 Weight (Pounds): 238 Objective General Appearance: WD/WN, alert, obese Neck: supple Cardiovascular: normal rate Respiratory/Chest: chest wall non-tender, lungs clear, normal breath sounds, no respiratory distress, no accessory muscle use Abdomen: normal bowel sounds, non tender, soft, no organomegaly, no mass Edema: no edema noted Arm (L), no edema noted Arm (R), no edema noted Leg (L), no edema noted Leg (R), no edema noted Pedal (L), no edema noted Pedal (R), no edema noted Generalized Edema: trace edema Neurologic: responsive, motor weakness Elian Thrasher MD May 27, 2019 07:40
[2019-05-27] MEDS ORDERED: dilTIAZem HCl 25mg/5ml Inj IVP ONE (08:00)
--- NOTE | 2019-05-27 08:01 | NUR ---
NURSE NOTES: Dr. Thrasher notified patient converted back to sinus rhythm with HR 99. Dr. Thrasher acknowledged and ordered to cancel cardizem order. Order discontinued. Will continue to monitor patient.
[2019-05-27] MEDS: Ascorbic Acid 500mg tab ORAL SCH (08:59)
[2019-05-27] MEDS: Multivitamin w/Minerals tab ORAL SCH (08:59)
[2019-05-27] MEDS: metFORMIN 500mg tab ORAL SCH ×3 (08:59→17:55)
[2019-05-27] MEDS: Lisinopril 20mg tab ORAL SCH (09:00)
[2019-05-27] MEDS: Depakote 125mg Sprinkles ORAL SCH ×3 (09:00→17:55)
[2019-05-27] MEDS: Allopurinol 100mg Tab ORAL SCH (09:00)
[2019-05-27] MEDS: Azithromycin 250mg tab ORAL SCH (09:00)
[2019-05-27] MEDS: Heparin 5000 units/ml inj SUBQ SCH ×2 (09:01→20:24)
--- NOTE | 2019-05-27 09:02 | NUR ---
RD ASSESSMENT & RECOMMENDATIONS SEE CARE ACTIVITY FOR COMPLETE ASSESSMENT DAILY ESTIMATED NEEDS: Needs based on Cardiac, DM, sepsis 92gk abw 20-25 kcals/kg 3950-7454 total kcals 1.25-2 g protein/kg 115-184 g total protein Fluid per MD, on lasix NUTRITION DIAGNOSIS: Increased pro needs r/t sepsis and wound care as evidenced by febrile on adm (102.6), elev LA, pt w/ sacral and scrotal skin breakdown, h/o CVA. CURRENT DIET: CCHO MED PO DIET RECOMMENDATIONS: CCHO MED/ Low Na diet ADDITIONAL RECOMMENDATIONS: 1) On lasix, maintain calibrated bed scale wts 2) Updated lytes as able 3) Rec NISS w/ bed side BG checking, -> Obtain HgA1C for eval 4) H/o CVA, consider HAIRSPRING STUDDER eval for appropriate texture 5) Wound care: F/up w/ eval-> add WILLOW BID + vit C 250mg qd 6) Add Glucerna 1 tetra w/ meals (250kcal/10g each)
--- NOTE | 2019-05-27 09:03 | NUR ---
NURSE NOTES: Patient refused morning lab draws today. Explained to patient x 3 of not having lab drawn, patient continued to refused. Respected patient rights. Contacted and left message for Dr. Thrasher regarding situation. Awaiting call back. Will continue to monitor patient.
--- NOTE | 2019-05-27 10:19 | Pulmonology Progress Note ---
Assessment/Plan Assessment/Plan ASSESSMENT: This is a 79[facility] with history of diabetes, hypertension, stroke, chronic obstructive pulmonary disease 1. COVID-19 pneumonia. 2. ESBL E.coli UTI 3. Positive blood cultures with gram-positive cocci. 4. Diabetes. 5. Hypertension. 6. Chronic obstructive pulmonary disease. PLAN: 1. Continue hydroxychloroquine and azithromycin. 2. Continue isolation. 3. Continue Zosyn and VAnco 4. O2 and pulmonary hygiene. Ryan Quiroga M.D. Subjective Interval Events: None new Constitutional: Reports: no symptoms HEENT: Repors: no symptoms Respiratory: Reports: no symptoms Cardiovascular: Reports: no symptoms Gastrointestinal/Abdominal: Reports: no symptoms Allergies: Coded Allergies: No Known Allergies (Unverified , 01/11/16) Objective Last 24 Hour Vital Signs Date Time Temp Pulse Resp B/P (MAP) Pulse Ox O2 Delivery O2 Flow Rate FiO2 05/27/19 09:00 132/91 05/27/19 08:00 99 05/27/19 08:00 Room Air 05/27/19 07:48 101.5 96 18 132/91 (105) 96 05/27/19 04:00 98.9 112 18 135/73 (93) 96 05/27/19 04:00 Room Air 05/27/19 03:39 116 05/27/19 02:50 114 05/27/19 02:40 116 18 111/76 (88) 96 05/27/19 02:33 132 133/85 05/27/19 02:30 148 05/27/19 02:21 132 133/85 (101) 05/27/19 02:00 140 05/27/19 00:44 100.2 05/27/19 00:00 Room Air 05/27/19 00:00 92 05/27/19 00:00 101.2 85 18 142/68 (92) 96 05/26/19 20:42 102.2 92 18 154/88 (110) 96 05/26/19 20:00 102.2 92 18 154/88 (110) 96 05/26/19 20:00 Room Air 05/26/19 19:44 99 05/26/19 16:00 Room Air 05/26/19 16:00 89 05/26/19 16:00 99.1 95 18 121/59 (79) 95 05/26/19 12:00 98.6 94 18 137/72 (93) 97 05/26/19 12:00 Room Air 05/26/19 12:00 102 Intake and Output 05/26/19 05/27/19 19:00 07:00 Intake Total 575 ml 954.5 ml Balance 575 ml 954.5 ml Intake Oral 500 ml IV Total 75 ml 954.5 ml # Voids 2 3 # Bowel Movements 3 4 General Appearance: no acute distress HEENT: normocephalic Respiratory/Chest: chest wall non-tender Cardiovascular: normal peripheral pulses Abdomen: normal bowel sounds Current Medications Medications (Trade) Dose Ordered Sig/Julita Route PRN Reason Start Time Stop Time Status Last Admin Dose Admin Acetaminophen (Tylenol) 650 mg Q6H PRN ORAL Prn Pain/Headache/Temp > 101 05/24/19 15:00 06/23/19 14:59 05/27/19 00:14 Allopurinol (Zyloprim) 100 mg DAILY ORAL 05/25/19 09:00 06/24/19 08:59 05/27/19 09:00 Ascorbic Acid (Vitamin C) 500 mg DAILY ORAL 05/25/19 09:00 06/24/19 08:59 05/27/19 08:59 Aspirin (ASA) 325 mg DAILY ORAL 05/25/19 09:00 07/09/19 08:59 05/27/19 08:59 Atorvastatin Calcium (Lipitor) 40 mg BEDTIME ORAL 05/24/19 21:00 08/22/19 20:59 05/26/19 20:11 Azithromycin (Zithromax) 250 mg DAILY ORAL 05/26/19 09:00 05/29/19 09:01 05/27/19 09:00 Divalproex Sodium (Depakote Sprinkles) 250 mg THREE TIMES A DAY ORAL 05/26/19 13:00 06/23/19 17:59 05/27/19 09:00 Heparin Sodium (Porcine) (Heparin 5000 units/ml) 5,000 units EVERY 12 HOURS SUBQ 05/24/19 21:00 07/08/19 20:59 05/27/19 09:01 Hydroxychloroquine Sulfate (Plaquenil) 200 mg BID ORAL 05/26/19 09:00 05/29/19 18:01 05/27/19 08:59 Lisinopril (PriniviL) 20 mg DAILY ORAL 05/25/19 09:00 06/24/19 08:59 05/27/19 09:00 Metformin HCl (Glucophage) 500 mg THREE TIMES A DAY ORAL 05/24/19 18:00 06/23/19 17:59 05/27/19 08:59 Multivitamins Therapeutic (Therapeutic Multivitamin) 1 ea DAILY ORAL 05/25/19 09:00 06/24/19 08:59 05/27/19 08:59 Nicotine (Nicoderm) 1 patch Q24H TDERMAL 05/27/19 08:00 08/25/19 07:59 05/27/19 08:59 Piperacillin Sod/ Tazobactam Sod 3.375 gm/Sodium Chloride 110 ml @ 27.5 mls/hr EVERY 8 HOURS IVPB 05/24/19 15:00 05/29/19 14:59 05/27/19 05:05 Potassium Chloride (K-Dur) 10 meq DAILY ORAL 05/25/19 09:46 08/23/19 09:45 05/27/19 09:00 Sodium Chloride 1,000 ml @ 75 mls/hr [id number] IV 05/24/19 15:00 06/23/19 14:59 05/27/19 09:06 Ryan Quiroga MD May 27, 2019 10:19
--- NOTE | 2019-05-27 11:11 | NUR ---
*-* INSURANCE *-* ALL CLINICALS AND REVIEWS HAVE BEEN FAXED TO: [facility] REF#[id number] CM: OMER # [phone] EXT [phone] FAX# [phone] REVIEWS/CLINICALS
--- NOTE | 2019-05-27 11:11 | NUR ---
*-* INSURANCE *-* ALL CLINICALS AND REVIEWS HAVE BEEN FAXED TO: RAJ[facility]K REF#[id number] CM: OMER # [phone] EXT [phone] FAX# [phone] REVIEWS/CLINICALS
--- NOTE | 2019-05-27 11:11 | Infectious Diseases Prog Note ---
Assessment/Plan Assessment/Plan antibiotics : zosyn 3.31.20 - hydroxychloroquine, azithromycin A 1. COVID 19 pneumonia 2. e.coli UTI 3. fever 4. diabetes mellitus 5. hypertension 6. COPD 7. + blood culture with coag neg staph likely contaminated P 1. continue hydroxychloroquine, azithromycin 2 more days 2. continue zosyn 3 more days 3. will follow up cultures 4. continue isolation Subjective Constitutional: Denies: fever, chills Respiratory: Reports: dry cough; Denies: shortness of breath Gastrointestinal/Abdominal: Denies: nausea, vomiting, diarrhea Musculoskeletal: Denies: pain Allergies: Coded Allergies: No Known Allergies (Unverified , 01/11/16) Objective Vital Signs Last 24 Hour Vital Signs Date Time Temp Pulse Resp B/P (MAP) Pulse Ox O2 Delivery O2 Flow Rate FiO2 05/27/19 09:00 132/91 05/27/19 08:00 99 05/27/19 08:00 Room Air 05/27/19 07:48 101.5 96 18 132/91 (105) 96 05/27/19 04:00 98.9 112 18 135/73 (93) 96 05/27/19 04:00 Room Air 05/27/19 03:39 116 05/27/19 02:50 114 05/27/19 02:40 116 18 111/76 (88) 96 05/27/19 02:33 132 133/85 05/27/19 02:30 148 05/27/19 02:21 132 133/85 (101) 05/27/19 02:00 140 05/27/19 00:44 100.2 05/27/19 00:00 Room Air 05/27/19 00:00 92 05/27/19 00:00 101.2 85 18 142/68 (92) 96 05/26/19 20:42 102.2 92 18 154/88 (110) 96 05/26/19 20:00 102.2 92 18 154/88 (110) 96 05/26/19 20:00 Room Air 05/26/19 19:44 99 05/26/19 16:00 Room Air 05/26/19 16:00 89 05/26/19 16:00 99.1 95 18 121/59 (79) 95 05/26/19 12:00 98.6 94 18 137/72 (93) 97 05/26/19 12:00 Room Air 05/26/19 12:00 102 Height (Feet): 6 Height (Inches): 2.00 Weight (Pounds): 238 Current Medications Medications (Trade) Dose Ordered Sig/Julita Route PRN Reason Start Time Stop Time Status Last Admin Dose Admin Acetaminophen (Tylenol) 650 mg Q6H PRN ORAL Prn Pain/Headache/Temp > 101 05/24/19 15:00 06/23/19 14:59 05/27/19 00:14 Allopurinol (Zyloprim) 100 mg DAILY ORAL 05/25/19 09:00 06/24/19 08:59 05/27/19 09:00 Ascorbic Acid (Vitamin C) 500 mg DAILY ORAL 05/25/19 09:00 06/24/19 08:59 05/27/19 08:59 Aspirin (ASA) 325 mg DAILY ORAL 05/25/19 09:00 07/09/19 08:59 05/27/19 08:59 Atorvastatin Calcium (Lipitor) 40 mg BEDTIME ORAL 05/24/19 21:00 08/22/19 20:59 05/26/19 20:11 Azithromycin (Zithromax) 250 mg DAILY ORAL 05/26/19 09:00 05/29/19 09:01 05/27/19 09:00 Divalproex Sodium (Depakote Sprinkles) 250 mg THREE TIMES A DAY ORAL 05/26/19 13:00 06/23/19 17:59 05/27/19 09:00 Heparin Sodium (Porcine) (Heparin 5000 units/ml) 5,000 units EVERY 12 HOURS SUBQ 05/24/19 21:00 07/08/19 20:59 05/27/19 09:01 Hydroxychloroquine Sulfate (Plaquenil) 200 mg BID ORAL 05/26/19 09:00 05/29/19 18:01 05/27/19 08:59 Lisinopril (PriniviL) 20 mg DAILY ORAL 05/25/19 09:00 06/24/19 08:59 05/27/19 09:00 Metformin HCl (Glucophage) 500 mg THREE TIMES A DAY ORAL 05/24/19 18:00 06/23/19 17:59 05/27/19 08:59 Multivitamins Therapeutic (Therapeutic Multivitamin) 1 ea DAILY ORAL 05/25/19 09:00 06/24/19 08:59 05/27/19 08:59 Nicotine (Nicoderm) 1 patch Q24H TDERMAL 05/27/19 08:00 08/25/19 07:59 05/27/19 08:59 Piperacillin Sod/ Tazobactam Sod 3.375 gm/Sodium Chloride 110 ml @ 27.5 mls/hr EVERY 8 HOURS IVPB 05/24/19 15:00 05/29/19 14:59 05/27/19 05:05 Potassium Chloride (K-Dur) 10 meq DAILY ORAL 05/25/19 09:46 08/23/19 09:45 05/27/19 09:00 Sodium Chloride 1,000 ml @ 75 mls/hr [id number] IV 05/24/19 15:00 06/23/19 14:59 05/27/19 09:06 Veronica Conrad MD May 27, 2019 11:10
--- NOTE | 2019-05-27 11:59 | NUR ---
CAUSTIC LOADERDUST COLLECTOR SI: PNA, TACHYCARDIA, FEVER T. 101.5 HR 148 RR 18 B/P 132/91 RA 98% IS: CARDIZEM IV X 1 ZOSYN IV IVF NS @ 75ML/HR ZITHROMAX PLAQUENIL STEP DOWN STATUS
--- NOTE | 2019-05-27 16:19 | NUR ---
NURSE NOTES: Patient noted desaturating to 85% on room air. No SOB noted, lung sounds clear, pt has history of COPD. Placed patient on 2LNC, SpO2 now 93%. Contacted and informed Dr. Thrasher of situation and inquired if okay to place patient on 2LNC. Dr. Thrasher stated "ok." Order entered, noted, and carried out. Will continue to monitor patient.
--- NOTE | 2019-05-27 19:18 | NUR ---
HAND-OFF: Report given to ЕЛЕНА Charles.
--- NOTE | 2019-05-27 19:19 | NUR ---
NURSE NOTES: Received patient from ЕЛЕНА Rogers. Patient is aaox 2 with forgetfulness, vss with a history of A-Fib. No acute distress witnessed. Patient is clean, semi-cooperative, on 2L NC saturating at 92% and on bus monitor. Patient is refusing lab draw, but is unclear as to why. Educated patient on the need for labs. Further education needed. All patients items are within reach, bed at its lowest position, call light in reach, and x3 bed rails are up. Will continue to monitor.
[2019-05-27] MEDS: Atorvastatin 80mg tab ORAL SCH (20:23)
[2019-05-28] VITALS: BP 153/78
--- NOTE | 2019-05-28 00:58 | NUR ---
NURSE NOTES: Patient is easily agitated when adjusting his oxygen. Patient desaturates to 80% when NC is off his face. Patient is saturating at 97% with 2L NC. No acte distress observed.
[2019-05-28 04:00] VITALS: BP 135/68
--- NOTE | 2019-05-28 04:02 | NUR ---
NURSE NOTES: No Epifix available in wound cart at this time. Will follow wound care order with available supplies.
--- NOTE | 2019-05-28 04:30 | NUR ---
NURSE NOTES: Patient aggressively refused lab draws. Patient is alert to name and place, but occasionally speaks inappropriately. Patient is calm after blood draw was stopped. Will continue to monitor.
--- NOTE | 2019-05-28 05:00 | Progress Note ---
DATE: 05/27/2019 CARDIOLOGY PROGRESS NOTE SUBJECTIVE: The patient developed rapid atrial fibrillation. Intravenous Cardizem was given. Ultimately, the patient's rate was controlled and sinus rhythm conversion spontaneously occurred. Monitor remains with sinus rhythm. The patient is on day 3 of hydroxychloroquine therapy. 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 OBJECTIVE: LUNGS: Bilateral breath sounds. Rhonchi. CARDIAC: Regular rhythm and rate. Normal S1 and S2. ABDOMEN: Soft. EXTREMITIES: Trace edema. LABORATORY DATA: Labs pending. IMPRESSION: 1. COVID infection with pneumonia. 2. Paroxysmal atrial fibrillation. 3. Recovered lactic acidosis. 4. Type 2 diabetes mellitus. PLAN: 1. Recheck laboratory studies. 2. Add beta-gino. 3. Monitor cardiac parameters while on hydroxychloroquine troponin level. Mateus Styles M.D. DR: MARTHA JOB#: [id number] CC:
[2019-05-28] MEDS: Piperacillin/Tazobactam 3.375 GM in NS 110 ML IVPB SCH ×3 (05:23→21:40)
--- NOTE | 2019-05-28 07:15 | NUR ---
HAND-OFF: Report given to ЕЛЕНА Hurst.
--- NOTE | 2019-05-28 07:18 | NUR ---
NURSE NOTES: Received report from ЕЛЕНА Charles. Patient is resting in bed, in stable condition. No s/sx of SOB, breathing is even and unlabored, on 3LNC. Denies any presence of pain or discomfort at this time. Bed is in lowest position. Brakes engaged. Call light is kept within easy reach. Will continue to monitor patient.
[2019-05-28 07:45] VITALS: BP 150/77
[2019-05-28] MEDS: Ascorbic Acid 500mg tab ORAL SCH (08:10)
[2019-05-28] MEDS: Heparin 5000 units/ml inj SUBQ SCH ×2 (08:10→20:04)
[2019-05-28] MEDS: Lisinopril 20mg tab ORAL SCH (08:11)
[2019-05-28] MEDS: Azithromycin 250mg tab ORAL SCH (08:12)
[2019-05-28] MEDS: Multivitamin w/Minerals tab ORAL SCH (08:13)
[2019-05-28] MEDS: metFORMIN 500mg tab ORAL SCH ×3 (08:13→17:12)
[2019-05-28] MEDS: Allopurinol 100mg Tab ORAL SCH (08:13)
[2019-05-28] MEDS: Metoprolol Succinate XL 50mg tab ORAL SCH (08:14)
[2019-05-28] MEDS: Depakote 125mg Sprinkles ORAL SCH (08:15)
--- NOTE | 2019-05-28 10:00 | NUR ---
NURSE NOTES: Dr. Thrasher seen and examined patient at bedside. This nurse spoke with MD at bedside. Informed MD that patient has refused lab draws this morning x 3 and again refused when Dr. Thrasher asked patient if okay to draw labs. Patient stated "No." Informed Dr. Thrasher of patient's temperature of 100.4 F axillary a repeat after medication and cooling measures, Dr. Thrasher acknowledged - no new orders given. Also informed Dr. Thrasher of patient's current SpO2 of 88-92% on 3L NC, Hx COPD; no s/sx of SOB, breathing is unlabored, lung sound clear; Dr. Thrasher also auscultated lung sounds. Dr. Thrasher acknowledged - no new orders given. Per Dr. Ruiz informed this nurse will discontinued Depakote today. Will monitor patient.
[2019-05-28] MEDS ORDERED: NS 275ml ONE (10:31)
[2019-05-28] MEDS ORDERED: Tubing IV Secondary IV ONE (10:31)
--- NOTE | 2019-05-28 11:18 | General Progress Note ---
Assessment/Plan Problem List: (1) COVID-19 virus detected ICD Codes: U07.1 - COVID-19 SNOMED: 302874369 (2) Facial laceration ICD Codes: S01.81XA - Laceration without foreign body of other part of head, initial encounter SNOMED: 215240098 (3) Status post CVA ICD Codes: Z86.73 - Personal history of transient ischemic attack (TIA), and cerebral infarction without residual deficits SNOMED: 190777739 (4) Sepsis ICD Codes: A41.9 - Sepsis, unspecified organism SNOMED: 23070222 (5) UTI (urinary tract infection) ICD Codes: N39.0 - Urinary tract infection, site not specified SNOMED: 19710516 (6) SOB (shortness of breath) ICD Codes: R06.02 - Shortness of breath SNOMED: 620802187 Status: stable Assessment/Plan: abx per id follow up cultures hydroxychloriqine and azithromax for covid o2 resp rx as needed bp rx antiplt rx cardizem rx compliance stressed d/w poa perri- update on test results(covid+) and current rx plans Subjective ROS Limited/Unobtainable: No Constitutional: Reports: fever, malaise, weakness HEENT: Reports: no symptoms Cardiovascular: Reports: no symptoms Respiratory: Reports: cough Gastrointestinal/Abdominal: Reports: no symptoms Genitourinary: Reports: no symptoms Neurologic/Psychiatric: Reports: anxiety, emotional problems Endocrine: Reports: no symptoms Hematologic/Lymphatic: Reports: no symptoms Allergies: Coded Allergies: No Known Allergies (Unverified , 01/11/16) All Systems: reviewed and negative except above Subjective There were no overnight events. Patient remains uncooperative with care. He is taking medications but refusing lab draws. He has had low-grade fevers. Intermittent cough. He denies any chest pain or shortness of breath. He is on 2 to 3 L of oxygen via nasal cannula. He at times remains agitated and combative. Objective Last 24 Hour Vital Signs Date Time Temp Pulse Resp B/P (MAP) Pulse Ox O2 Delivery O2 Flow Rate FiO2 05/28/19 08:46 100.4 05/28/19 08:14 89 150/77 05/28/19 08:11 150/77 05/28/19 08:00 Nasal Cannula 3.0 05/28/19 08:00 3.0 05/28/19 08:00 103 05/28/19 07:45 100.9 89 19 150/77 (101) 94 05/28/19 04:00 97 05/28/19 04:00 Nasal Cannula 3.0 05/28/19 04:00 99.0 96 19 135/68 (90) 91 05/28/19 00:00 98.8 100 18 153/78 (103) 94 05/28/19 00:00 Nasal Cannula 2.0 05/28/19 00:00 105 05/27/19 20:00 97 05/27/19 20:00 100.2 99 20 122/54 (76) 91 05/27/19 20:00 Nasal Cannula 2.0 05/27/19 16:00 101 05/27/19 16:00 Room Air 05/27/19 15:47 99.7 99 18 117/73 (88) 90 05/27/19 12:27 100.4 95 18 125/73 (90) 95 05/27/19 12:00 93 05/27/19 12:00 100.4 109 18 125/73 (90) 95 05/27/19 12:00 Room Air Intake and Output 05/27/19 05/28/19 19:00 07:00 Intake Total 846.74345 ml Balance 846.55620 ml IV Total 846.75071 ml # Voids 2 1 # Bowel Movements 5 3 Height (Feet): 6 Height (Inches): 2.00 Weight (Pounds): 238 Objective General Appearance: WD/WN, alert, obese Neck: supple Cardiovascular: normal rate Respiratory/Chest: chest wall non-tender, lungs clear, normal breath sounds, no respiratory distress, no accessory muscle use Abdomen: normal bowel sounds, non tender, soft, no organomegaly, no mass Edema: no edema noted Arm (L), no edema noted Arm (R), no edema noted Leg (L), no edema noted Leg (R), no edema noted Pedal (L), no edema noted Pedal (R), no edema noted Generalized Edema: trace edema Neurologic: responsive, motor weakness Elian Thrasher MD May 28, 2019 11:18
--- NOTE | 2019-05-28 11:56 | Pulmonology Progress Note ---
Assessment/Plan Assessment/Plan ASSESSMENT: This is a 79-year-old assisted resident with history of diabetes, hypertension, stroke, chronic obstructive pulmonary disease 1. COVID-19 pneumonia. 2. ESBL E.coli UTI 3. Positive blood cultures with gram-positive cocci. 4. Diabetes. 5. Hypertension. 6. Chronic obstructive pulmonary disease. PLAN: 1. Continue hydroxychloroquine and azithromycin. 2. Continue isolation. 3. Continue Zosyn and VAnco 4. O2 and pulmonary hygiene. Ryan Quiroga M.D. Subjective Interval Events: None new Constitutional: Reports: no symptoms HEENT: Repors: no symptoms Respiratory: Reports: no symptoms Cardiovascular: Reports: no symptoms Allergies: Coded Allergies: No Known Allergies (Unverified , 01/11/16) Objective Last 24 Hour Vital Signs Date Time Temp Pulse Resp B/P (MAP) Pulse Ox O2 Delivery O2 Flow Rate FiO2 05/28/19 08:46 100.4 05/28/19 08:14 89 150/77 05/28/19 08:11 150/77 05/28/19 08:00 Nasal Cannula 3.0 05/28/19 08:00 3.0 05/28/19 08:00 103 05/28/19 07:45 100.9 89 19 150/77 (101) 94 05/28/19 04:00 97 05/28/19 04:00 Nasal Cannula 3.0 05/28/19 04:00 99.0 96 19 135/68 (90) 91 05/28/19 00:00 98.8 100 18 153/78 (103) 94 05/28/19 00:00 Nasal Cannula 2.0 05/28/19 00:00 105 05/27/19 20:00 97 05/27/19 20:00 100.2 99 20 122/54 (76) 91 05/27/19 20:00 Nasal Cannula 2.0 05/27/19 16:00 101 05/27/19 16:00 Room Air 05/27/19 15:47 99.7 99 18 117/73 (88) 90 05/27/19 12:27 100.4 95 18 125/73 (90) 95 05/27/19 12:00 93 05/27/19 12:00 100.4 109 18 125/73 (90) 95 05/27/19 12:00 Room Air Intake and Output 05/27/19 05/28/19 19:00 07:00 Intake Total 846.11929 ml Balance 846.75252 ml IV Total 846.78738 ml # Voids 2 1 # Bowel Movements 5 3 General Appearance: no acute distress HEENT: normocephalic Respiratory/Chest: chest wall non-tender Cardiovascular: normal peripheral pulses Abdomen: normal bowel sounds Current Medications Medications (Trade) Dose Ordered Sig/Julita Route PRN Reason Start Time Stop Time Status Last Admin Dose Admin Acetaminophen (Tylenol) 650 mg Q6H PRN ORAL Prn Pain/Headache/Temp > 101 05/24/19 15:00 06/23/19 14:59 05/28/19 08:16 Allopurinol (Zyloprim) 100 mg DAILY ORAL 05/25/19 09:00 06/24/19 08:59 05/28/19 08:13 Ascorbic Acid (Vitamin C) 500 mg DAILY ORAL 05/25/19 09:00 06/24/19 08:59 05/28/19 08:10 Aspirin (ASA) 325 mg DAILY ORAL 05/25/19 09:00 07/09/19 08:59 05/28/19 08:13 Atorvastatin Calcium (Lipitor) 40 mg BEDTIME ORAL 05/24/19 21:00 08/22/19 20:59 05/27/19 20:23 Azithromycin (Zithromax) 250 mg DAILY ORAL 05/26/19 09:00 05/29/19 09:01 05/28/19 08:12 Divalproex Sodium (Depakote Sprinkles) 250 mg THREE TIMES A DAY ORAL 05/26/19 13:00 06/23/19 17:59 05/28/19 08:15 Heparin Sodium (Porcine) (Heparin 5000 units/ml) 5,000 units EVERY 12 HOURS SUBQ 05/24/19 21:00 07/08/19 20:59 05/28/19 08:10 Hydroxychloroquine Sulfate (Plaquenil) 200 mg BID ORAL 05/26/19 09:00 05/29/19 18:01 05/28/19 08:14 Lisinopril (PriniviL) 20 mg DAILY ORAL 05/25/19 09:00 06/24/19 08:59 05/28/19 08:11 Metformin HCl (Glucophage) 500 mg THREE TIMES A DAY ORAL 05/24/19 18:00 06/23/19 17:59 05/28/19 08:13 Metoprolol Succinate (Toprol XL) 50 mg DAILY ORAL 05/28/19 09:00 08/26/19 08:59 05/28/19 08:14 Multivitamins Therapeutic (Therapeutic Multivitamin) 1 ea DAILY ORAL 05/25/19 09:00 06/24/19 08:59 05/28/19 08:13 Nicotine (Nicoderm) 1 patch Q24H TDERMAL 05/27/19 08:00 08/25/19 07:59 05/28/19 07:28 Piperacillin Sod/ Tazobactam Sod 3.375 gm/Sodium Chloride 110 ml @ 27.5 mls/hr EVERY 8 HOURS IVPB 05/24/19 15:00 05/29/19 14:59 05/28/19 05:23 Sodium Chloride 1,000 ml @ 75 mls/hr [id number] IV 05/24/19 15:00 06/23/19 14:59 05/27/19 20:24 Ryan Quiroga MD May 28, 2019 11:56
[2019-05-28 12:00] VITALS: BP 140/76
--- NOTE | 2019-05-28 12:19 | NUR ---
NURSE NOTES: Dr. Quiroga at nurse station. Updated MD on pt status, patient desaturated on room air to SpO2 85%, placed on 3LNC now with SpO2 of 94%, has medical history of COPD, no SOB noted. Informed MD pt is eating and is on NS IVF at 75 ml/hr. Dr. Quiroga acknowledged and ordered to discontinued NS IVF and monitor. Noted. Will continue to monitor patient.
--- NOTE | 2019-05-28 12:24 | NUR ---
NURSE NOTES: Depakote Sprinkles 250 mg PO TID is still active, contacted and followed up with Dr. Thrasher regarding status of order and if still would like it to be discontinued. Dr. Thrasher acknowledged and ordered to discontinue Depakote Sprinkles 250 mg PO TID. Noted. Will continue to monitor patient.
[2019-05-28 14:55] LABS: HEMATOCRIT 38.8 % (42.0-52.0); HEMOGLOBIN 13.2 G/DL (14.2-18.0); MEAN CORPUSCULAR VOLUME 87 FL (80-99); PLATELET COUNT 149 K/UL (150-450); RED BLOOD COUNT 4.47 M/UL (4.70-6.10); RED CELL DISTRIBUTION WIDTH 13.3 % (11.6-14.8); WHITE BLOOD COUNT 2.9 K/UL (4.8-10.8)
[2019-05-28 15:37] VITALS: BP 141/68
--- NOTE | 2019-05-28 15:57 | NUR ---
NURSE NOTES: Per Lavern Geller, sister, can call her anytime if needed for assistance to speak to the patient to have labs drawn. 6. Noted.
--- NOTE | 2019-05-28 18:41 | NUR ---
NURSE NOTES: Patient noted with elevated troponin of 0.104 from 0.005. Performed 12 lead EKG per protocol, result shows Sinus Tachycardia with HR 107, pt denies chest pain, no SOB noted, on 2LNC with SpO2 of 92%. Called and left message with Dr. Styles regarding report, awaiting call back for any new orders. Will continue to monitor patient.
--- NOTE | 2019-05-28 19:10 | NUR ---
HAND-OFF: Report given to ЕЛЕНА Reynolds.
--- NOTE | 2019-05-28 19:11 | NUR ---
NURSE NOTES: Received report from Aris Rn, pt. in bed awake, pt. appears to be a/o x's 2- able to follow simple commands, no signs or symptoms of acute cardiac or respiratory distress noted, bed alarm on, side rails up x's3 and safety brakes engaged, comfort measures provided, pt. appears to be sating well on room air- no distress noted, pt. appears to be clean and dry, Rt. thumb 24G- IV intact and patent, HOB elevated, safety measures continued, comfort measures provided, will continue with plan of care.
[2019-05-28 20:00] VITALS: BP 152/67
[2019-05-28] MEDS: Atorvastatin 80mg tab ORAL SCH (20:03)
--- NOTE | 2019-05-28 20:54 | NUR ---
NURSE NOTES: during rounds noted- pt. de-sating to mid 80's- RT- called- pt. placed on non- rebreather 15L Fio2 @100%- sating at 94%- pt. remains stable- will continue to monitor pt. and with plan of care.
--- NOTE | 2019-05-28 21:48 | NUR ---
NURSE NOTES: reassessed pt. after non-rebreather- pt. appears to be sating well at 94-95%- no distress noted. Will continue to monitor patient.
--- NOTE | 2019-05-28 22:30 | NUR ---
NURSE NOTES: DR. Styles calling would like to know patients QT interval and would like strip pulled and he will call back- will carry out orders and pull a rhythm strip.
--- NOTE | 2019-05-28 23:56 | NUR ---
NURSE NOTES: Dr. Styles, called back notified him of pts QT interval of 0.36- no new orders given. Pt. remains stable.
[2019-05-29] VITALS: BP 141/62
--- NOTE | 2019-05-29 00:20 | NUR ---
NURSE NOTES: DR. Styles calling to see if lab can add a CMP on patients labs- per Jaime from lab he will call back and let me know.
--- NOTE | 2019-05-29 00:30 | NUR ---
NURSE NOTES: penelope Sandoval he will do lab CMP.
[2019-05-29 00:48] LABS: ANION GAP 14 mmol/L (5-15); BLOOD UREA NITROGEN 10 mg/dL (7-18); CALCIUM 8.4 MG/DL (8.5-10.1); CARBON DIOXIDE 19 MMOL/L (21-32); CHLORIDE 113 MMOL/L (98-107); CREATININE 1.1 MG/DL (0.55-1.30); POTASSIUM 3.5 MMOL/L (3.5-5.1); SODIUM 146 MMOL/L (136-145)
[2019-05-29 00:53] LABS: ALANINE AMINOTRANSFERASE 39 U/L (12-78); ALBUMIN 2.4 G/DL (3.4-5.0); ALBUMIN/GLOBULIN RATIO 0.6 (1.0-2.7); ALKALINE PHOSPHATASE 48 U/L (46-116); ASPARTATE AMINO TRANSFERASE 46 U/L (15-37); BILIRUBIN,TOTAL 0.2 MG/DL (0.2-1.0)
--- NOTE | 2019-05-29 02:30 | Progress Note ---
DATE: 05/28/2019 CARDIOLOGY PROGRESS NOTE SUBJECTIVE: The patient remains uncooperative at times with care. He still has cough and congestion. He is on low nasal flow oxygen. OBJECTIVE: VITAL SIGNS: Blood pressure 150/77, heart rate 89, respiratory rate 19, temperature max 100.9. HEART: Monitored rhythm is sinus. No recurrent atrial fibrillation noted. QT interval is less than 400 milliseconds. Exam is not performed due to isolation concerns at this time. Troponin 0.104 and pro-natriuretic peptide is 2300. IMPRESSION: 1. COVID-19 pneumonia. 2. Paroxysmal atrial fibrillation. 3. Acute myocardial ischemia. 4. Acute diastolic congestive heart failure. PLAN: 1. Continue beta gino. 2. Maintain therapeutic potassium levels. 3. Diurese. Mateus Styles M.D. DR: GARFIELD JOB#: [id number] CC:
[2019-05-29 04:00] VITALS: BP 145/63
[2019-05-29] MEDS: Piperacillin/Tazobactam 3.375 GM in NS 110 ML IVPB SCH ×2 (05:00→14:45)
--- NOTE | 2019-05-29 06:56 | NUR ---
HAND-OFF: Report given to Vinh RN, pt. remains stable and no signs of distress noted, nurse aware to f/u on any abnormal am labs with Doctor as some labs are still pending.
--- NOTE | 2019-05-29 07:09 | NUR ---
NURSE NOTES: Pt in bed in low position with bed alarm on, call light next to pt, pt is aware on the use of the call light, pt on non-rebreather and saturation is 96%, pt positive for CV-19, [id number] as he is able to tell wants and needs, IV intact and asymptomatic, pt denies pain, no s/s of distress. Pt orientation is 1 as this is baseline for the patient. checked labs and micro states uti for e-coli/ESBL and blood culture shows aerobic , sacral injury reported.
[2019-05-29 08:10] LABS: ANION GAP 10 mmol/L (5-15); BLOOD UREA NITROGEN 10 mg/dL (7-18); CALCIUM 8.2 MG/DL (8.5-10.1); CARBON DIOXIDE 25 MMOL/L (21-32); CHLORIDE 114 MMOL/L (98-107); CREATININE 1.2 MG/DL (0.55-1.30); POTASSIUM 3.7 MMOL/L (3.5-5.1); SODIUM 149 MMOL/L (136-145)
[2019-05-29 08:30] VITALS: BP 119/53
[2019-05-29] MEDS: Metoprolol Succinate XL 50mg tab ORAL SCH (08:57)
[2019-05-29] MEDS: metFORMIN 500mg tab ORAL SCH ×3 (08:57→16:57)
[2019-05-29] MEDS: Lisinopril 20mg tab ORAL SCH (08:57)
[2019-05-29] MEDS: Ascorbic Acid 500mg tab ORAL SCH (08:58)
[2019-05-29] MEDS: Allopurinol 100mg Tab ORAL SCH (08:58)
[2019-05-29] MEDS: Multivitamin w/Minerals tab ORAL SCH (08:58)
[2019-05-29] MEDS: Azithromycin 250mg tab ORAL SCH (08:58)
--- NOTE | 2019-05-29 09:12 | General Progress Note ---
Assessment/Plan Problem List: (1) COVID-19 virus detected ICD Codes: U07.1 - COVID-19 SNOMED: 971325908 (2) Facial laceration ICD Codes: S01.81XA - Laceration without foreign body of other part of head, initial encounter SNOMED: 406651571 (3) Status post CVA ICD Codes: Z86.73 - Personal history of transient ischemic attack (TIA), and cerebral infarction without residual deficits SNOMED: 238908558 (4) Sepsis ICD Codes: A41.9 - Sepsis, unspecified organism SNOMED: 40690263 (5) UTI (urinary tract infection) ICD Codes: N39.0 - Urinary tract infection, site not specified SNOMED: 14925221 (6) SOB (shortness of breath) ICD Codes: R06.02 - Shortness of breath SNOMED: 940578746 Status: stable Assessment/Plan: abx per id follow up cultures hydroxychloriqine and azithromax for covid o2 resp rx as needed bp rx antiplt rx cardizem rx monitor labs consider hypotonic ivf. compliance stressed d/w poa perri- update on test results(covid+) and current rx plans Subjective ROS Limited/Unobtainable: No Constitutional: Reports: malaise, weakness HEENT: Reports: no symptoms Cardiovascular: Reports: no symptoms Respiratory: Reports: cough Gastrointestinal/Abdominal: Reports: no symptoms Genitourinary: Reports: no symptoms Neurologic/Psychiatric: Reports: no symptoms Hematologic/Lymphatic: Reports: no symptoms Allergies: Coded Allergies: No Known Allergies (Unverified , 01/11/16) All Systems: reviewed and negative except above Subjective no events. remains on o2. currently eating. still with cough. fevers improving. no vomiting. mostly cooperative with rx/meds. Objective Last 24 Hour Vital Signs Date Time Temp Pulse Resp B/P (MAP) Pulse Ox O2 Delivery O2 Flow Rate FiO2 05/29/19 08:57 90 119/53 05/29/19 08:57 119/53 05/29/19 08:30 98.1 90 24 119/53 (75) 92 05/29/19 07:31 15.0 100 05/29/19 07:27 Nasal Cannula 3.0 05/29/19 04:00 15.0 100 05/29/19 04:00 98.8 97 18 145/63 (90) 99 05/29/19 04:00 Nasal Cannula 3.0 05/29/19 03:49 102 05/29/19 02:55 99.9 05/29/19 00:08 99 05/29/19 00:00 98.9 94 18 141/62 (88) 96 05/29/19 00:00 Nasal Cannula 3.0 05/29/19 00:00 15.0 100 05/28/19 20:56 15.0 100 05/28/19 20:56 15.0 100 05/28/19 20:01 102 05/28/19 20:00 100.6 103 18 152/67 (95) 95 05/28/19 20:00 2.0 05/28/19 20:00 Nasal Cannula 3.0 05/28/19 16:00 2.0 05/28/19 16:00 97 05/28/19 16:00 Nasal Cannula 3.0 05/28/19 15:37 98.2 94 19 141/68 (92) 92 05/28/19 12:00 98.2 95 19 140/76 (97) 93 05/28/19 12:00 3.0 05/28/19 12:00 92 05/28/19 12:00 Nasal Cannula 3.0 Intake and Output 05/28/19 05/29/19 19:00 07:00 Intake Total 710.0 ml 165.0 ml Balance 710.0 ml 165.0 ml Intake Oral 600 ml IV Total 110.0 ml 165.0 ml # Voids 2 3 # Bowel Movements 4 4 Laboratory Tests 05/28/19 14:50: White Blood Count 2.9L, Red Blood Count 4.47L, Hemoglobin 13.2L, Hematocrit 38.8L, Mean Corpuscular Volume 87, Mean Corpuscular Hemoglobin 29.5, Mean Corpuscular Hemoglobin Concent 34.0, Red Cell Distribution Width 13.3, Platelet Count 149L, Mean Platelet Volume 5.6L, Neutrophils (%) (Auto) , Lymphocytes (%) (Auto) , Monocytes (%) (Auto) , Eosinophils (%) (Auto) , Basophils (%) (Auto) , Differential Total Cells Counted 100, Neutrophils % (Manual) 58, Lymphocytes % ( Manual) 24, Monocytes % (Manual) 5, Eosinophils % (Manual) 0, Basophils % ( Manual) 1, Band Neutrophils 12H, Platelet Estimate DecreasedL, Platelet Morphology Normal, Red Blood Cell Morphology Normal, Sodium Level 146H, Potassium Level 3.5, Chloride Level 113H, Carbon Dioxide Level 19L, Anion Gap 14 , Blood Urea Nitrogen 10, Creatinine 1.1, Estimat Glomerular Filtration Rate > 60, Glucose Level 98, Calcium Level 8.4L, Magnesium Level 1.9, Total Bilirubin 0.2, Aspartate Amino Transf (AST/SGOT) 46H, Alanine Aminotransferase (ALT/SGPT) 39, Alkaline Phosphatase 48, Troponin I 0.104H, Pro-B-Type Natriuretic Peptide 2316H, Total Protein 6.4, Albumin 2.4L, Globulin 4.0, Albumin/Globulin Ratio 0.6L 05/29/19 07:25: Sodium Level 149H, Potassium Level 3.7, Chloride Level 114H, Carbon Dioxide Level 25, Anion Gap 10, Blood Urea Nitrogen 10, Creatinine 1.2, Estimat Glomerular Filtration Rate > 60, Glucose Level 88, Calcium Level 8.2L, Magnesium Level 1.9 Height (Feet): 6 Height (Inches): 2.00 Weight (Pounds): 238 Objective General Appearance: WD/WN, alert, obese Neck: supple Cardiovascular: normal rate Respiratory/Chest: chest wall non-tender, lungs clear, normal breath sounds, no respiratory distress, no accessory muscle use Abdomen: normal bowel sounds, non tender, soft, no organomegaly, no mass Edema: no edema noted Arm (L), no edema noted Arm (R), no edema noted Leg (L), no edema noted Leg (R), no edema noted Pedal (L), no edema noted Pedal (R), no edema noted Generalized Edema: trace edema Neurologic: responsive, motor weakness Elian Thrasher MD May 29, 2019 09:12
[2019-05-29] MEDS: Heparin 5000 units/ml inj SUBQ SCH ×2 (09:58→20:10)
--- NOTE | 2019-05-29 11:46 | Pulmonology Progress Note ---
Assessment/Plan Assessment/Plan ASSESSMENT: This is a 79-year-old [facility] resident with history of diabetes, hypertension, stroke, chronic obstructive pulmonary disease 1. COVID-19 pneumonia. 2. ESBL E.coli UTI 3. Positive blood cultures with gram-positive cocci. 4. Diabetes. 5. Hypertension. 6. Chronic obstructive pulmonary disease. PLAN: 1. Continue hydroxychloroquine and azithromycin. 2. Continue isolation. 3. Continue Zosyn and VAnco 4. O2 and pulmonary hygiene. 5. Will dc IV fluids 6. WIll diurese 7. Check CXR Ryan Quiroga M.D. Subjective Interval Events: Appears clinically worse today with hypoxemia; on NRBM Constitutional: Reports: no symptoms HEENT: Repors: no symptoms Respiratory: Reports: dry cough Cardiovascular: Reports: no symptoms Gastrointestinal/Abdominal: Reports: no symptoms Genitourinary: Reports: no symptoms Allergies: Coded Allergies: No Known Allergies (Unverified , 01/11/16) Objective Last 24 Hour Vital Signs Date Time Temp Pulse Resp B/P (MAP) Pulse Ox O2 Delivery O2 Flow Rate FiO2 05/29/19 08:57 90 119/53 05/29/19 08:57 119/53 05/29/19 08:30 98.1 90 24 119/53 (75) 92 05/29/19 08:07 95 05/29/19 08:00 93 Non-Rebreather 15.0 100 05/29/19 07:31 15.0 100 05/29/19 07:27 Nasal Cannula 3.0 05/29/19 04:00 15.0 100 05/29/19 04:00 98.8 97 18 145/63 (90) 99 05/29/19 04:00 Nasal Cannula 3.0 05/29/19 03:49 102 05/29/19 02:55 99.9 05/29/19 00:08 99 05/29/19 00:00 98.9 94 18 141/62 (88) 96 05/29/19 00:00 Nasal Cannula 3.0 05/29/19 00:00 15.0 100 05/28/19 20:56 15.0 100 05/28/19 20:56 15.0 100 05/28/19 20:01 102 05/28/19 20:00 100.6 103 18 152/67 (95) 95 05/28/19 20:00 2.0 05/28/19 20:00 Nasal Cannula 3.0 05/28/19 16:00 2.0 05/28/19 16:00 97 05/28/19 16:00 Nasal Cannula 3.0 05/28/19 15:37 98.2 94 19 141/68 (92) 92 05/28/19 12:00 98.2 95 19 140/76 (97) 93 05/28/19 12:00 3.0 05/28/19 12:00 92 05/28/19 12:00 Nasal Cannula 3.0 Intake and Output 05/28/19 05/29/19 19:00 07:00 Intake Total 710.0 ml 165.0 ml Balance 710.0 ml 165.0 ml Intake Oral 600 ml IV Total 110.0 ml 165.0 ml # Voids 2 3 # Bowel Movements 4 4 General Appearance: no acute distress HEENT: normocephalic Respiratory/Chest: decreased breath sounds Cardiovascular: normal peripheral pulses Abdomen: normal bowel sounds Extremities: no cyanosis Laboratory Tests 05/28/19 14:50: White Blood Count 2.9L, Red Blood Count 4.47L, Hemoglobin 13.2L, Hematocrit 38.8L, Mean Corpuscular Volume 87, Mean Corpuscular Hemoglobin 29.5, Mean Corpuscular Hemoglobin Concent 34.0, Red Cell Distribution Width 13.3, Platelet Count 149L, Mean Platelet Volume 5.6L, Neutrophils (%) (Auto) , Lymphocytes (%) (Auto) , Monocytes (%) (Auto) , Eosinophils (%) (Auto) , Basophils (%) (Auto) , Differential Total Cells Counted 100, Neutrophils % (Manual) 58, Lymphocytes % ( Manual) 24, Monocytes % (Manual) 5, Eosinophils % (Manual) 0, Basophils % ( Manual) 1, Band Neutrophils 12H, Platelet Estimate DecreasedL, Platelet Morphology Normal, Red Blood Cell Morphology Normal, Sodium Level 146H, Potassium Level 3.5, Chloride Level 113H, Carbon Dioxide Level 19L, Anion Gap 14 , Blood Urea Nitrogen 10, Creatinine 1.1, Estimat Glomerular Filtration Rate > 60, Glucose Level 98, Calcium Level 8.4L, Magnesium Level 1.9, Total Bilirubin 0.2, Aspartate Amino Transf (AST/SGOT) 46H, Alanine Aminotransferase (ALT/SGPT) 39, Alkaline Phosphatase 48, Troponin I 0.104H, Pro-B-Type Natriuretic Peptide 2316H, Total Protein 6.4, Albumin 2.4L, Globulin 4.0, Albumin/Globulin Ratio 0.6L 05/29/19 07:25: Sodium Level 149H, Potassium Level 3.7, Chloride Level 114H, Carbon Dioxide Level 25, Anion Gap 10, Blood Urea Nitrogen 10, Creatinine 1.2, Estimat Glomerular Filtration Rate > 60, Glucose Level 88, Calcium Level 8.2L, Magnesium Level 1.9 Current Medications Medications (Trade) Dose Ordered Sig/Julita Route PRN Reason Start Time Stop Time Status Last Admin Dose Admin Acetaminophen (Tylenol) 650 mg Q6H PRN ORAL Prn Pain/Headache/Temp > 101 05/24/19 15:00 06/23/19 14:59 05/29/19 02:25 Allopurinol (Zyloprim) 100 mg DAILY ORAL 05/25/19 09:00 06/24/19 08:59 05/29/19 08:58 Ascorbic Acid (Vitamin C) 500 mg DAILY ORAL 05/25/19 09:00 06/24/19 08:59 05/29/19 08:58 Aspirin (ASA) 325 mg DAILY ORAL 05/25/19 09:00 07/09/19 08:59 05/29/19 08:57 Atorvastatin Calcium (Lipitor) 40 mg BEDTIME ORAL 05/24/19 21:00 08/22/19 20:59 05/28/19 20:03 Dextrose 1,000 ml @ 50 mls/hr Q20H IV 05/29/19 09:15 06/28/19 09:14 05/29/19 11:41 Heparin Sodium (Porcine) (Heparin 5000 units/ml) 5,000 units EVERY 12 HOURS SUBQ 05/24/19 21:00 07/08/19 20:59 05/29/19 09:58 Hydroxychloroquine Sulfate (Plaquenil) 200 mg BID ORAL 05/26/19 09:00 05/29/19 18:01 05/29/19 08:57 Lisinopril (PriniviL) 20 mg DAILY ORAL 05/25/19 09:00 06/24/19 08:59 05/29/19 08:57 Metformin HCl (Glucophage) 500 mg THREE TIMES A DAY ORAL 05/24/19 18:00 06/23/19 17:59 05/29/19 08:57 Metoprolol Succinate (Toprol XL) 50 mg DAILY ORAL 05/28/19 09:00 08/26/19 08:59 05/29/19 08:57 Multivitamins Therapeutic (Therapeutic Multivitamin) 1 ea DAILY ORAL 05/25/19 09:00 06/24/19 08:59 05/29/19 08:58 Nicotine (Nicoderm) 1 patch Q24H TDERMAL 05/27/19 08:00 08/25/19 07:59 05/29/19 08:57 Piperacillin Sod/ Tazobactam Sod 3.375 gm/Sodium Chloride 110 ml @ 27.5 mls/hr EVERY 8 HOURS IVPB 05/24/19 15:00 05/29/19 14:59 05/29/19 05:00 Ryan Quiroga MD May 29, 2019 11:46
[2019-05-29 12:30] VITALS: BP 122/67
--- NOTE | 2019-05-29 14:49 | Infectious Diseases Prog Note ---
Assessment/Plan Assessment/Plan A; 1. COVID-19 disease 2. Urinary tract infection with E.coli 3. Positive blood culture likely contaminatiion 4. Diabetes. 5. Hypertension. 6. Chronic obstructive pulmonary disease. PLAN: 1. Continue hydroxychloroquine until tonight 2. Continue contact isolation. 3. Continue Zosyn X 1 day 4. f/u CXR Subjective ROS Limited/Unobtainable: Yes Respiratory: Reports: other - has oxygen desaturation Allergies: Coded Allergies: No Known Allergies (Unverified , 01/11/16) Objective Vital Signs Last 24 Hour Vital Signs Date Time Temp Pulse Resp B/P (MAP) Pulse Ox O2 Delivery O2 Flow Rate FiO2 05/29/19 12:40 15.0 100 05/29/19 12:40 Nasal Cannula 3.0 05/29/19 12:30 97.8 92 22 122/67 (85) 91 05/29/19 12:03 95 05/29/19 08:57 90 119/53 05/29/19 08:57 119/53 05/29/19 08:30 98.1 90 24 119/53 (75) 92 05/29/19 08:07 95 05/29/19 08:00 93 Non-Rebreather 15.0 100 05/29/19 07:31 15.0 100 05/29/19 07:27 Nasal Cannula 3.0 05/29/19 04:00 15.0 100 05/29/19 04:00 98.8 97 18 145/63 (90) 99 05/29/19 04:00 Nasal Cannula 3.0 05/29/19 03:49 102 05/29/19 02:55 99.9 05/29/19 00:08 99 05/29/19 00:00 98.9 94 18 141/62 (88) 96 05/29/19 00:00 Nasal Cannula 3.0 05/29/19 00:00 15.0 100 05/28/19 20:56 15.0 100 05/28/19 20:56 15.0 100 05/28/19 20:01 102 05/28/19 20:00 100.6 103 18 152/67 (95) 95 05/28/19 20:00 2.0 05/28/19 20:00 Nasal Cannula 3.0 05/28/19 16:00 2.0 05/28/19 16:00 97 05/28/19 16:00 Nasal Cannula 3.0 05/28/19 15:37 98.2 94 19 141/68 (92) 92 Height (Feet): 6 Height (Inches): 2.00 Weight (Pounds): 238 HEENT: mucous membranes moist Respiratory/Chest: decreased breath sounds, other - oxygen y rebreathing mask Cardiovascular: normal rate Abdomen: soft, non tender Extremities: other - edema more in hands Neurologic/Psychiatric: alert, responsive Laboratory Tests Test 05/28/19 14:50 05/29/19 07:25 White Blood Count 2.9 K/UL (4.8-10.8) L Red Blood Count 4.47 M/UL (4.70-6.10) L Hemoglobin 13.2 G/DL (14.2-18.0) L Hematocrit 38.8 % (42.0-52.0) L Mean Corpuscular Volume 87 FL (80-99) Mean Corpuscular Hemoglobin 29.5 PG (27.0-31.0) Mean Corpuscular Hemoglobin Concent 34.0 G/DL (32.0-36.0) Red Cell Distribution Width 13.3 % (11.6-14.8) Platelet Count 149 K/UL (150-450) L Mean Platelet Volume 5.6 FL (6.5-10.1) L Neutrophils (%) (Auto) % (45.0-75.0) Lymphocytes (%) (Auto) % (20.0-45.0) Monocytes (%) (Auto) % (1.0-10.0) Eosinophils (%) (Auto) % (0.0-3.0) Basophils (%) (Auto) % (0.0-2.0) Differential Total Cells Counted 100 Neutrophils % (Manual) 58 % (45-75) Lymphocytes % (Manual) 24 % (20-45) Monocytes % (Manual) 5 % (1-10) Eosinophils % (Manual) 0 % (0-3) Basophils % (Manual) 1 % (0-2) Band Neutrophils 12 % (0-8) H Platelet Estimate Decreased L Platelet Morphology Normal Red Blood Cell Morphology Normal Sodium Level 146 MMOL/L (136-145) H 149 MMOL/L (136-145) H Potassium Level 3.5 MMOL/L (3.5-5.1) 3.7 MMOL/L (3.5-5.1) Chloride Level 113 MMOL/L (98-107) H 114 MMOL/L (98-107) H Carbon Dioxide Level 19 MMOL/L (21-32) L 25 MMOL/L (21-32) Anion Gap 14 mmol/L (5-15) 10 mmol/L (5-15) Blood Urea Nitrogen 10 mg/dL (7-18) 10 mg/dL (7-18) Creatinine 1.1 MG/DL (0.55-1.30) 1.2 MG/DL (0.55-1.30) Estimat Glomerular Filtration Rate > 60 mL/min (>60) > 60 mL/min (>60) Glucose Level 98 MG/DL (74-106) 88 MG/DL (74-106) Calcium Level 8.4 MG/DL (8.5-10.1) L 8.2 MG/DL (8.5-10.1) L Magnesium Level 1.9 MG/DL (1.8-2.4) 1.9 MG/DL (1.8-2.4) Total Bilirubin 0.2 MG/DL (0.2-1.0) Aspartate Amino Transf (AST/SGOT) 46 U/L (15-37) H Alanine Aminotransferase (ALT/SGPT) 39 U/L (12-78) Alkaline Phosphatase 48 U/L (46-116) Troponin I 0.104 ng/mL (0.000-0.056) Pro-B-Type Natriuretic Peptide 2316 pg/mL (0-125) H Total Protein 6.4 G/DL (6.4-8.2) Albumin 2.4 G/DL (3.4-5.0) L Globulin 4.0 g/dL Albumin/Globulin Ratio 0.6 (1.0-2.7) L Current Medications Medications (Trade) Dose Ordered Sig/Julita Route PRN Reason Start Time Stop Time Status Last Admin Dose Admin Acetaminophen (Tylenol) 650 mg Q6H PRN ORAL Prn Pain/Headache/Temp > 101 05/24/19 15:00 06/23/19 14:59 05/29/19 02:25 Allopurinol (Zyloprim) 100 mg DAILY ORAL 05/25/19 09:00 06/24/19 08:59 05/29/19 08:58 Ascorbic Acid (Vitamin C) 500 mg DAILY ORAL 05/25/19 09:00 06/24/19 08:59 05/29/19 08:58 Aspirin (ASA) 325 mg DAILY ORAL 05/25/19 09:00 07/09/19 08:59 05/29/19 08:57 Atorvastatin Calcium (Lipitor) 40 mg BEDTIME ORAL 05/24/19 21:00 08/22/19 20:59 05/28/19 20:03 Heparin Sodium (Porcine) (Heparin 5000 units/ml) 5,000 units EVERY 12 HOURS SUBQ 05/24/19 21:00 07/08/19 20:59 05/29/19 09:58 Hydroxychloroquine Sulfate (Plaquenil) 200 mg BID ORAL 05/26/19 09:00 05/29/19 18:01 05/29/19 08:57 Lisinopril (PriniviL) 20 mg DAILY ORAL 05/25/19 09:00 06/24/19 08:59 05/29/19 08:57 Metformin HCl (Glucophage) 500 mg THREE TIMES A DAY ORAL 05/24/19 18:00 06/23/19 17:59 05/29/19 12:41 Metoprolol Succinate (Toprol XL) 50 mg DAILY ORAL 05/28/19 09:00 08/26/19 08:59 05/29/19 08:57 Multivitamins Therapeutic (Therapeutic Multivitamin) 1 ea DAILY ORAL 05/25/19 09:00 06/24/19 08:59 05/29/19 08:58 Nicotine (Nicoderm) 1 patch Q24H TDERMAL 05/27/19 08:00 08/25/19 07:59 05/29/19 08:57 Piperacillin Sod/ Tazobactam Sod 3.375 gm/Sodium Chloride 110 ml @ 27.5 mls/hr EVERY 8 HOURS IVPB 05/24/19 15:00 05/29/19 14:59 05/29/19 05:00 Juancho Diamond MD May 29, 2019 14:49
[2019-05-29 16:20] VITALS: BP 135/81
--- NOTE | 2019-05-29 19:13 | NUR ---
HAND-OFF: Report given to Azeem, endorsed that the pt only ate 10% for breakfast and lunch and 100% for dinner. to tritrate O2 and keep it above 92% as dc planning is initiated. Addendum: 05/29/19 at 1916 by TY SANCHEZ RN dis-regard above note, Report given to Azeem, endorsed the pt was given 80mg of IV lasix, and a condom cath was placed. with 1000ml out. pt will have to be a feeder since he desaturates quickly and is currently on a non-rebreather at 15L.
--- NOTE | 2019-05-29 19:30 | NUR ---
NURSE NOTES: Received report from ЕЛЕНА Kunz. Pt is resting on the bed and awake and able to response to verbal stimuli. On non-rebreather mask with O2 15L and noted SaO2 86-90%. Denied pain at this time. Encouraged deep breathing. Iv site intact and no sign of infiltration noted. Dressing is clean and dry on buttock area wound. Pt has condom cath but came off. Reapplied condom cath. Changed position. On proper droplet precaution for COVID 19. Placed fall precaution. Will continue to monitor any change of condition.
[2019-05-29 20:00] VITALS: BP 128/64
[2019-05-29] MEDS: Atorvastatin 80mg tab ORAL SCH (20:09)
--- NOTE | 2019-05-29 20:31 | NUR ---
NURSE NOTES: Noted BT: 101 F. provide cooling measure. Given Tylenol as order. Will continue to monitor any change of condition.
[2019-05-30] VITALS (7 sets, daily range): BP systolic 123–159; BP diastolic 62–72
--- NOTE | 2019-05-30 | NUR ---
NURSE NOTES: Pt is sleeping on the bed and no sign of acute distress noted. On non rebreather mask and SaO2 95-90% noted. No fever. BT checked 98.8F. Repositioned. Placed fall precaution. Will continue to care plan.
--- NOTE | 2019-05-30 05:59 | Progress Note ---
DATE: 05/29/2019 CARDIOLOGY PROGRESS NOTE SUBJECTIVE: Patient remains with sinus rhythm. No recurring atrial fibrillation. PHYSICAL EXAMINATION: VITAL SIGNS: Blood pressure 119/53, heart rate 90, respiratory rate 24, T-max 100.6, oxygen saturation on 3 liters is 92% to 99%. Because of isolation concerns, examination is not performed. LABORATORY DATA: Sodium is 149, potassium 3.7, bicarb 25, BUN 10, and creatinine 1.2. Magnesium 1.9. IMPRESSION: 1. COVID-19 pneumonia. 2. Paroxysmal atrial fibrillation. 3. Dehydration. 4. Hypernatremia. PLAN: 1. Additional hypotonic IV fluids. 2. Continue anti-platelet therapy. 3. No additional diuresis at this time. 4. Continue hydroxychloroquine and azithromycin combination. 5. Observe for QTc prolongation. Mateus Styles M.D. DR: ADELE JOB#: [id number] CC:
[2019-05-30 06:04] LABS: BASOPHILS % (AUTO) 0.3 % (0.0-2.0); EOSINOPHILS % (AUTO) 0.6 % (0.0-3.0); HEMATOCRIT 42.8 % (42.0-52.0); HEMOGLOBIN 13.8 G/DL (14.2-18.0); LYMPHOCYTES % (AUTO) 29.9 % (20.0-45.0); MEAN CORPUSCULAR VOLUME 89 FL (80-99); MONOCYTES % (AUTO) 6.9 % (1.0-10.0); NEUTROPHILS % (AUTO) 62.3 % (45.0-75.0); PLATELET COUNT 168 K/UL (150-450); RED CELL DISTRIBUTION WIDTH 13.6 % (11.6-14.8); WHITE BLOOD COUNT 4.8 K/UL (4.8-10.8)
[2019-05-30 06:24] LABS: ALANINE AMINOTRANSFERASE 101 U/L (12-78); ALBUMIN 2.3 G/DL (3.4-5.0); ALBUMIN/GLOBULIN RATIO 0.5 (1.0-2.7); ALKALINE PHOSPHATASE 55 U/L (46-116); ANION GAP 14 mmol/L (5-15); ASPARTATE AMINO TRANSFERASE 135 U/L (15-37); BILIRUBIN,TOTAL 0.4 MG/DL (0.2-1.0); BLOOD UREA NITROGEN 12 mg/dL (7-18); CALCIUM 8.4 MG/DL (8.5-10.1); CARBON DIOXIDE 23 MMOL/L (21-32); CHLORIDE 112 MMOL/L (98-107); CREATININE 1.3 MG/DL (0.55-1.30); POTASSIUM 3.7 MMOL/L (3.5-5.1); SODIUM 149 MMOL/L (136-145)
--- NOTE | 2019-05-30 07:34 | NUR ---
HAND-OFF: Report given to ЕЛЕНА Sim. Pt is sleeping on the bed and SaO2 85-91% with Non-rebreather mask.
--- NOTE | 2019-05-30 07:35 | NUR ---
NURSE NOTES: Report received from Azeem Forbes RN.Pt resting in bed asleep noted no resp distress on non rebreather mask 15L,no signs of pain or discomfort, STach on the monitor,condom cath in placed draining yellow urine,,skin warm with low grade fever,IV site to RH intact with IVF D5W at 100ml/hr,sacral wound ,SR up x2 HOB elevated bed lock in lowest position,will continue with plans of care.
[2019-05-30] MEDS: Multivitamin w/Minerals tab ORAL SCH (09:38)
[2019-05-30] MEDS: Ascorbic Acid 500mg tab ORAL SCH (09:38)
[2019-05-30] MEDS: Allopurinol 100mg Tab ORAL SCH (09:39)
[2019-05-30] MEDS: Lisinopril 20mg tab ORAL SCH (09:39)
[2019-05-30] MEDS: metFORMIN 500mg tab ORAL SCH ×3 (09:39→18:24)
[2019-05-30] MEDS: Metoprolol Succinate XL 50mg tab ORAL SCH (09:40)
[2019-05-30] MEDS: Heparin 5000 units/ml inj SUBQ SCH ×2 (09:41→21:47)
--- NOTE | 2019-05-30 10:12 | Diagnostic Imaging Report ---
Indication: Tortuous of breath Technique: One view of the chest Comparison: 05/23/2019 Findings: Interim development of bilateral diffuse interstitial and airspace disease. The pleural spaces are probably clear, not well visualized on the left due to overlying arm. The heart is enlarged. Impression: Interim development of fairly extensive and diffuse bilateral interstitial and airspace infiltrates versus edema.
--- NOTE | 2019-05-30 10:47 | Pulmonology Progress Note ---
Assessment/Plan Assessment/Plan ASSESSMENT: This is a 79-year-old long term resident with history of diabetes, hypertension, stroke, chronic obstructive pulmonary disease 1. COVID-19 pneumonia. 2. ESBL E.coli UTI 3. Positive blood cultures with gram-positive cocci. 4. Diabetes. 5. Hypertension. 6. Chronic obstructive pulmonary disease. 7. Pulmonary edema PLAN: 1. Continue hydroxychloroquine and azithromycin. 2. Continue isolation. 3. Continue Zosyn and VAnco 4. O2 and pulmonary hygiene. 5. Will dc IV fluids 6. Consider further diuresis 7. Reviewed CXR; has extensive infiltrates; suspect pulmonary edema Ryan Quiroga M.D. Subjective Interval Events: Has diuresed 2L; remains on NRBM; looks more comfortable Constitutional: Reports: no symptoms HEENT: Repors: no symptoms Respiratory: Reports: shortness of breath Cardiovascular: Reports: no symptoms Allergies: Coded Allergies: No Known Allergies (Unverified , 01/11/16) Objective Last 24 Hour Vital Signs Date Time Temp Pulse Resp B/P (MAP) Pulse Ox O2 Delivery O2 Flow Rate FiO2 05/30/19 09:40 100 157/73 05/30/19 09:39 157/73 05/30/19 07:00 90 Non-Rebreather 15.0 100 05/30/19 04:00 98.8 98 24 145/65 (91) 90 05/30/19 04:00 15.0 100 05/30/19 04:00 Non-Rebreather 15.0 05/30/19 03:37 99 05/30/19 00:00 Non-Rebreather 15.0 05/30/19 00:00 99 05/30/19 00:00 98.8 64 24 123/68 (86) 90 05/30/19 00:00 15.0 100 05/29/19 21:01 100.0 05/29/19 20:00 15.0 100 05/29/19 20:00 101.0 95 24 128/64 (85) 90 05/29/19 20:00 Non-Rebreather 15.0 05/29/19 19:56 90 Non-Rebreather 15.0 100 05/29/19 19:06 95 05/29/19 16:20 98.3 90 24 135/81 (99) 92 05/29/19 16:04 15.0 100 05/29/19 15:26 Nasal Cannula 3.0 05/29/19 15:08 89 05/29/19 12:40 15.0 100 05/29/19 12:40 Nasal Cannula 3.0 05/29/19 12:30 97.8 92 22 122/67 (85) 91 05/29/19 12:03 95 Intake and Output 05/29/19 05/30/19 19:00 07:00 Intake Total 720 ml 345 ml Output Total 1000 ml 200 ml Balance -280 ml 145 ml Intake Oral 720 ml 60 ml IV Total 285 ml Output Urine Total 1000 ml 200 ml # Voids 3 # Bowel Movements 5 3 General Appearance: no acute distress HEENT: normocephalic Respiratory/Chest: chest wall non-tender, decreased breath sounds Cardiovascular: normal peripheral pulses Abdomen: normal bowel sounds Laboratory Tests 05/30/19 04:00: White Blood Count 4.8, Red Blood Count 4.80, Hemoglobin 13.8L, Hematocrit 42.8, Mean Corpuscular Volume 89, Mean Corpuscular Hemoglobin 28.8, Mean Corpuscular Hemoglobin Concent 32.3, Red Cell Distribution Width 13.6, Platelet Count 168, Mean Platelet Volume 6.0L, Neutrophils (%) (Auto) 62.3, Lymphocytes (%) (Auto) 29.9, Monocytes (%) (Auto) 6.9, Eosinophils (%) (Auto) 0.6, Basophils (%) (Auto ) 0.3, Sodium Level 149H, Potassium Level 3.7, Chloride Level 112H, Carbon Dioxide Level 23, Anion Gap 14, Blood Urea Nitrogen 12, Creatinine 1.3, Estimat Glomerular Filtration Rate > 60, Glucose Level 76, Calcium Level 8.4L, Total Bilirubin 0.4, Aspartate Amino Transf (AST/SGOT) 135H, Alanine Aminotransferase (ALT/SGPT) 101H, Alkaline Phosphatase 55, Total Protein 6.9, Albumin 2.3L, Globulin 4.6, Albumin/Globulin Ratio 0.5L 05/30/19 09:08: Arterial Blood pH 7.390, Arterial Blood Partial Pressure CO2 39.6, Arterial Blood Partial Pressure O2 48.8*L, Arterial Blood HCO3 24.4, Arterial Blood Oxygen Saturation 84.9*L, Arterial Blood Base Excess -1.3, Laureano Test Positive Current Medications Medications (Trade) Dose Ordered Sig/Julita Route PRN Reason Start Time Stop Time Status Last Admin Dose Admin Acetaminophen (Tylenol) 650 mg Q6H PRN ORAL Prn Pain/Headache/Temp > 101 05/24/19 15:00 06/23/19 14:59 05/29/19 20:31 Allopurinol (Zyloprim) 100 mg DAILY ORAL 05/25/19 09:00 06/24/19 08:59 05/30/19 09:39 Ascorbic Acid (Vitamin C) 500 mg DAILY ORAL 05/25/19 09:00 06/24/19 08:59 05/30/19 09:38 Aspirin (ASA) 325 mg DAILY ORAL 05/25/19 09:00 07/09/19 08:59 05/30/19 09:39 Atorvastatin Calcium (Lipitor) 40 mg BEDTIME ORAL 05/24/19 21:00 08/22/19 20:59 05/29/19 20:09 Dextrose 1,000 ml @ 100 mls/hr Q10H IV 05/30/19 02:30 05/30/19 12:00 05/30/19 04:09 Heparin Sodium (Porcine) (Heparin 5000 units/ml) 5,000 units EVERY 12 HOURS SUBQ 05/24/19 21:00 07/08/19 20:59 05/30/19 09:41 Lisinopril (PriniviL) 20 mg DAILY ORAL 05/25/19 09:00 06/24/19 08:59 05/30/19 09:39 Metformin HCl (Glucophage) 500 mg THREE TIMES A DAY ORAL 05/24/19 18:00 06/23/19 17:59 05/30/19 09:39 Metoprolol Succinate (Toprol XL) 50 mg DAILY ORAL 05/28/19 09:00 08/26/19 08:59 05/30/19 09:40 Multivitamins Therapeutic (Therapeutic Multivitamin) 1 ea DAILY ORAL 05/25/19 09:00 06/24/19 08:59 05/30/19 09:38 Nicotine (Nicoderm) 1 patch Q24H TDERMAL 05/27/19 08:00 08/25/19 07:59 05/30/19 09:38 Ryan Quiroga MD May 30, 2019 10:47
--- NOTE | 2019-05-30 11:07 | General Progress Note ---
Assessment/Plan Problem List: (1) COVID-19 virus detected ICD Codes: U07.1 - COVID-19 SNOMED: 138183998 (2) Facial laceration ICD Codes: S01.81XA - Laceration without foreign body of other part of head, initial encounter SNOMED: 552450085 (3) Status post CVA ICD Codes: Z86.73 - Personal history of transient ischemic attack (TIA), and cerebral infarction without residual deficits SNOMED: 484401123 (4) Sepsis ICD Codes: A41.9 - Sepsis, unspecified organism SNOMED: 44593198 (5) UTI (urinary tract infection) ICD Codes: N39.0 - Urinary tract infection, site not specified SNOMED: 43562520 (6) SOB (shortness of breath) ICD Codes: R06.02 - Shortness of breath SNOMED: 745710348 Status: stable Assessment/Plan: abx per id follow up cultures hydroxychloriqine and azithromax for covid o2/nrb. may need bipap resp rx as needed bp rx antiplt rx cardizem rx monitor labs compliance stressed message left with mirza regarding worsening clinical status Subjective ROS Limited/Unobtainable: No Constitutional: Reports: malaise, weakness HEENT: Reports: no symptoms Cardiovascular: Reports: no symptoms Respiratory: Reports: cough, shortness of breath Gastrointestinal/Abdominal: Reports: no symptoms Genitourinary: Reports: no symptoms Neurologic/Psychiatric: Reports: no symptoms Endocrine: Reports: no symptoms Hematologic/Lymphatic: Reports: no symptoms Allergies: Coded Allergies: No Known Allergies (Unverified , 01/11/16) All Systems: reviewed and negative except above Subjective no events. now on NRB. still with cough. fevers improving. no vomiting. mostly cooperative with rx/meds. Objective Last 24 Hour Vital Signs Date Time Temp Pulse Resp B/P (MAP) Pulse Ox O2 Delivery O2 Flow Rate FiO2 05/30/19 09:40 100 157/73 05/30/19 09:39 157/73 05/30/19 07:00 90 Non-Rebreather 15.0 100 05/30/19 04:00 98.8 98 24 145/65 (91) 90 05/30/19 04:00 15.0 100 05/30/19 04:00 Non-Rebreather 15.0 05/30/19 03:37 99 05/30/19 00:00 Non-Rebreather 15.0 05/30/19 00:00 99 05/30/19 00:00 98.8 64 24 123/68 (86) 90 05/30/19 00:00 15.0 100 05/29/19 21:01 100.0 05/29/19 20:00 15.0 100 05/29/19 20:00 101.0 95 24 128/64 (85) 90 05/29/19 20:00 Non-Rebreather 15.0 05/29/19 19:56 90 Non-Rebreather 15.0 100 05/29/19 19:06 95 05/29/19 16:20 98.3 90 24 135/81 (99) 92 05/29/19 16:04 15.0 100 05/29/19 15:26 Nasal Cannula 3.0 05/29/19 15:08 89 05/29/19 12:40 15.0 100 05/29/19 12:40 Nasal Cannula 3.0 05/29/19 12:30 97.8 92 22 122/67 (85) 91 05/29/19 12:03 95 Intake and Output 05/29/19 05/30/19 19:00 07:00 Intake Total 720 ml 345 ml Output Total 1000 ml 200 ml Balance -280 ml 145 ml Intake Oral 720 ml 60 ml IV Total 285 ml Output Urine Total 1000 ml 200 ml # Voids 3 # Bowel Movements 5 3 Laboratory Tests 05/30/19 04:00: White Blood Count 4.8, Red Blood Count 4.80, Hemoglobin 13.8L, Hematocrit 42.8, Mean Corpuscular Volume 89, Mean Corpuscular Hemoglobin 28.8, Mean Corpuscular Hemoglobin Concent 32.3, Red Cell Distribution Width 13.6, Platelet Count 168, Mean Platelet Volume 6.0L, Neutrophils (%) (Auto) 62.3, Lymphocytes (%) (Auto) 29.9, Monocytes (%) (Auto) 6.9, Eosinophils (%) (Auto) 0.6, Basophils (%) (Auto ) 0.3, Sodium Level 149H, Potassium Level 3.7, Chloride Level 112H, Carbon Dioxide Level 23, Anion Gap 14, Blood Urea Nitrogen 12, Creatinine 1.3, Estimat Glomerular Filtration Rate > 60, Glucose Level 76, Calcium Level 8.4L, Total Bilirubin 0.4, Aspartate Amino Transf (AST/SGOT) 135H, Alanine Aminotransferase (ALT/SGPT) 101H, Alkaline Phosphatase 55, Total Protein 6.9, Albumin 2.3L, Globulin 4.6, Albumin/Globulin Ratio 0.5L 05/30/19 09:08: Arterial Blood pH 7.390, Arterial Blood Partial Pressure CO2 39.6, Arterial Blood Partial Pressure O2 48.8*L, Arterial Blood HCO3 24.4, Arterial Blood Oxygen Saturation 84.9*L, Arterial Blood Base Excess -1.3, Laureano Test Positive Height (Feet): 6 Height (Inches): 2.00 Weight (Pounds): 238 Objective General Appearance: WD/WN, alert, obese Neck: supple Cardiovascular: normal rate Respiratory/Chest: chest wall non-tender, lungs clear, normal breath sounds, no respiratory distress, no accessory muscle use Abdomen: normal bowel sounds, non tender, soft, no organomegaly, no mass Edema: no edema noted Arm (L), no edema noted Arm (R), no edema noted Leg (L), no edema noted Leg (R), no edema noted Pedal (L), no edema noted Pedal (R), no edema noted Generalized Edema: trace edema Neurologic: responsive, motor weakness Elian Thrasher MD May 30, 2019 11:06
--- NOTE | 2019-05-30 11:18 | Infectious Diseases Prog Note ---
Assessment/Plan Assessment/Plan A; 1. COVID-19 disease -Worsening CXR 2. Urinary tract infection with E.coli 3. Positive blood culture likely contaminatiion 4. Diabetes. 5. Hypertension. 6. Chronic obstructive pulmonary disease. PLAN: 1. Renew Zosyn 2. sputum culture 3. Repeat COVID19 test Subjective ROS Limited/Unobtainable: Yes Constitutional: Reports: fever, other - [id number] Allergies: Coded Allergies: No Known Allergies (Unverified , 01/11/16) Objective Vital Signs Last 24 Hour Vital Signs Date Time Temp Pulse Resp B/P (MAP) Pulse Ox O2 Delivery O2 Flow Rate FiO2 05/30/19 09:40 100 157/73 05/30/19 09:39 157/73 05/30/19 07:00 90 Non-Rebreather 15.0 100 05/30/19 04:00 98.8 98 24 145/65 (91) 90 05/30/19 04:00 15.0 100 05/30/19 04:00 Non-Rebreather 15.0 05/30/19 03:37 99 05/30/19 00:00 Non-Rebreather 15.0 05/30/19 00:00 99 05/30/19 00:00 98.8 64 24 123/68 (86) 90 05/30/19 00:00 15.0 100 05/29/19 21:01 100.0 05/29/19 20:00 15.0 100 05/29/19 20:00 101.0 95 24 128/64 (85) 90 05/29/19 20:00 Non-Rebreather 15.0 05/29/19 19:56 90 Non-Rebreather 15.0 100 05/29/19 19:06 95 05/29/19 16:20 98.3 90 24 135/81 (99) 92 05/29/19 16:04 15.0 100 05/29/19 15:26 Nasal Cannula 3.0 05/29/19 15:08 89 05/29/19 12:40 15.0 100 05/29/19 12:40 Nasal Cannula 3.0 05/29/19 12:30 97.8 92 22 122/67 (85) 91 05/29/19 12:03 95 Height (Feet): 6 Height (Inches): 2.00 Weight (Pounds): 238 HEENT: mucous membranes moist Respiratory/Chest: other - Oxygen by rebreathing mask Cardiovascular: tachycardia Abdomen: soft, non tender Extremities: no edema Neurologic/Psychiatric: other - sleeping Laboratory Tests Test 05/30/19 04:00 05/30/19 09:08 White Blood Count 4.8 K/UL (4.8-10.8) Red Blood Count 4.80 M/UL (4.70-6.10) Hemoglobin 13.8 G/DL (14.2-18.0) L Hematocrit 42.8 % (42.0-52.0) Mean Corpuscular Volume 89 FL (80-99) Mean Corpuscular Hemoglobin 28.8 PG (27.0-31.0) Mean Corpuscular Hemoglobin Concent 32.3 G/DL (32.0-36.0) Red Cell Distribution Width 13.6 % (11.6-14.8) Platelet Count 168 K/UL (150-450) Mean Platelet Volume 6.0 FL (6.5-10.1) L Neutrophils (%) (Auto) 62.3 % (45.0-75.0) Lymphocytes (%) (Auto) 29.9 % (20.0-45.0) Monocytes (%) (Auto) 6.9 % (1.0-10.0) Eosinophils (%) (Auto) 0.6 % (0.0-3.0) Basophils (%) (Auto) 0.3 % (0.0-2.0) Sodium Level 149 MMOL/L (136-145) H Potassium Level 3.7 MMOL/L (3.5-5.1) Chloride Level 112 MMOL/L (98-107) H Carbon Dioxide Level 23 MMOL/L (21-32) Anion Gap 14 mmol/L (5-15) Blood Urea Nitrogen 12 mg/dL (7-18) Creatinine 1.3 MG/DL (0.55-1.30) Estimat Glomerular Filtration Rate > 60 mL/min (>60) Glucose Level 76 MG/DL (74-106) Calcium Level 8.4 MG/DL (8.5-10.1) L Total Bilirubin 0.4 MG/DL (0.2-1.0) Aspartate Amino Transf (AST/SGOT) 135 U/L (15-37) H Alanine Aminotransferase (ALT/SGPT) 101 U/L (12-78) H Alkaline Phosphatase 55 U/L (46-116) Total Protein 6.9 G/DL (6.4-8.2) Albumin 2.3 G/DL (3.4-5.0) L Globulin 4.6 g/dL Albumin/Globulin Ratio 0.5 (1.0-2.7) L Arterial Blood pH 7.390 (7.350-7.450) Arterial Blood Partial Pressure CO2 39.6 mmHg (35.0-45.0) Arterial Blood Partial Pressure O2 48.8 mmHg (75.0-100.0) Arterial Blood HCO3 24.4 mmol/L (22.0-26.0) Arterial Blood Oxygen Saturation 84.9 % (95-100) *L Arterial Blood Base Excess -1.3 (-2-2) Laureano Test Positive Current Medications Medications (Trade) Dose Ordered Sig/Julita Route PRN Reason Start Time Stop Time Status Last Admin Dose Admin Acetaminophen (Tylenol) 650 mg Q6H PRN ORAL Prn Pain/Headache/Temp > 101 05/24/19 15:00 06/23/19 14:59 05/29/19 20:31 Allopurinol (Zyloprim) 100 mg DAILY ORAL 05/25/19 09:00 06/24/19 08:59 05/30/19 09:39 Ascorbic Acid (Vitamin C) 500 mg DAILY ORAL 05/25/19 09:00 06/24/19 08:59 05/30/19 09:38 Aspirin (ASA) 325 mg DAILY ORAL 05/25/19 09:00 07/09/19 08:59 05/30/19 09:39 Atorvastatin Calcium (Lipitor) 40 mg BEDTIME ORAL 05/24/19 21:00 08/22/19 20:59 05/29/19 20:09 Dextrose 1,000 ml @ 100 mls/hr Q10H IV 05/30/19 02:30 05/30/19 12:00 05/30/19 04:09 Furosemide (Lasix) 40 mg ONCE ONCE IV 05/30/19 11:15 05/30/19 11:16 UNV Heparin Sodium (Porcine) (Heparin 5000 units/ml) 5,000 units EVERY 12 HOURS SUBQ 05/24/19 21:00 07/08/19 20:59 05/30/19 09:41 Lisinopril (PriniviL) 20 mg DAILY ORAL 05/25/19 09:00 06/24/19 08:59 05/30/19 09:39 Metformin HCl (Glucophage) 500 mg THREE TIMES A DAY ORAL 05/24/19 18:00 06/23/19 17:59 05/30/19 09:39 Metoprolol Succinate (Toprol XL) 50 mg DAILY ORAL 05/28/19 09:00 08/26/19 08:59 05/30/19 09:40 Multivitamins Therapeutic (Therapeutic Multivitamin) 1 ea DAILY ORAL 05/25/19 09:00 06/24/19 08:59 05/30/19 09:38 Nicotine (Nicoderm) 1 patch Q24H TDERMAL 05/27/19 08:00 08/25/19 07:59 05/30/19 09:38 Potassium Chloride (K-Dur) 40 meq ONCE ONCE ORAL 05/30/19 11:15 05/30/19 11:16 Juancho Oscar MD May 30, 2019 11:18
--- NOTE | 2019-05-30 12:41 | NUR ---
NURSE NOTES: Pt febrile T101.1 cold compress to forehead applied will give Tylenol 650 mg GT.
--- NOTE | 2019-05-30 14:13 | NUR ---
PUBLIC SPEAKER: REVIEW SI: PNA . COVID-19 VIRUS DETECTED T 101.1 HR 106 RR 24 BP 157/73 SAT 90% NON-REBREATHER FIO2 100 NA 149 AST 135 ALT 101 SPUTUM CX PENDING REPEAT COVID-19 VIRUS TEST POST TX PENDING IS: ZOSYN IV Q8HR VITAMIN C 500MG ORAL DAILY MULTIVITAMIN ORAL DAILY STEP DOWN STATUS DCP: PATIENT IS FROM [facility]
[2019-05-30] MEDS ORDERED: NS 275ml ONE (14:20)
[2019-05-30] MEDS ORDERED: Tubing IV Secondary IV ONE (14:20)
--- NOTE | 2019-05-30 14:23 | NUR ---
*-* INSURANCE *-* ALL CLINICALS AND REVIEWS HAVE BEEN FAXED TO: RAJAN PECK REF#[id number] CM: OMER # [phone] EXT [id number] FAX# [phone] REVIEWS/CLINICALS
[2019-05-30] MEDS: Piperacillin/Tazobactam 3.375 GM in NS 110 ML IVPB SCH ×2 (14:53→21:48)
--- NOTE | 2019-05-30 17:00 | NUR ---
NURSE NOTES: Pt had a huge BM to black liquid stools,bed bath given,Temp down to 99.7
--- NOTE | 2019-05-30 19:30 | NUR ---
NURSE NOTES: Pt report received form MARTINEZ Haynes RN. pt is alert and oriented times 1. Pt is on no rebreather 100% able to sat at 97%, no acute resp distress noted. pt is on court recording monitor showing NSR, no acute resp distress noted. pt bed is low, locked, armed, call light within reach, bed rails up times 3,. will follow plan of care.
--- NOTE | 2019-05-30 19:30 | NUR ---
HAND-OFF: Report given to Aris Mann RN..
[2019-05-30] MEDS: Atorvastatin 80mg tab ORAL SCH (21:48)
[2019-05-31] VITALS: BP 143/67
--- NOTE | 2019-05-31 00:35 | NUR ---
NURSE NOTES: Called RT, spoke to Zunilda and Michael RT. requested to have Simon RT to assess pt.
--- NOTE | 2019-05-31 01:45 | NUR ---
NURSE NOTES: Pts Aux temp is still 102.[address] Ice pack in place. blanket off. will notify
--- NOTE | 2019-05-31 03:29 | Progress Note ---
DATE: 05/30/2019 CARDIOLOGY PROGRESS NOTE SUBJECTIVE: Condition is deteriorated. Increasing respiratory distress and hypoxia noted. Remains in sinus rhythm. No recurring atrial fibrillation. PHYSICAL EXAMINATION: VITAL SIGNS: Blood pressure 157/73, heart rate 100, respirations 24, afebrile. T-max 101. LUNGS: Coarse breath sounds. Rhonchi. CARDIAC: Regular rhythm and rate. Normal S1, S2. Ectopic beats noted. ABDOMEN: Soft. EXTREMITIES: No edema. LABORATORY DATA: White count 4.8, hemoglobin 13.8. Sodium 149, potassium 3.7, BUN 12, creatinine 1.3. Liver function studies are elevated. Albumin is 2.3. ABG - 7.39, 39, 49. IMPRESSION: 1. COVID-19 pneumonia. 2. Hypoxia. 3. Dehydration. 4. Hypernatremia. 5. Bacteremia with gram-positive cocci. 6. Increased risk for endocarditis. 7. Acute on chronic diastolic congestive heart failure. 8. Critical and guarded. PLAN: 1. Diuresis. 2. Free water repletion. 3. Antimicrobials. 4. Echocardiogram when able. 5. Oxygenation. Mateus Styles M.D. DR: ADELE JOB#: [id number] CC:
[2019-05-31 04:00] VITALS: BP 148/62
[2019-05-31] MEDS: Piperacillin/Tazobactam 3.375 GM in NS 110 ML IVPB SCH (06:04)
[2019-05-31 06:26] LABS: BASOPHILS % (AUTO) 0.7 % (0.0-2.0); HEMATOCRIT 41.9 % (42.0-52.0); HEMOGLOBIN 13.9 G/DL (14.2-18.0); LYMPHOCYTES % (AUTO) 15.8 % (20.0-45.0); MEAN CORPUSCULAR VOLUME 88 FL (80-99); MONOCYTES % (AUTO) 4.9 % (1.0-10.0); NEUTROPHILS % (AUTO) 77.7 % (45.0-75.0); PLATELET COUNT 187 K/UL (150-450); RED BLOOD COUNT 4.76 M/UL (4.70-6.10); RED CELL DISTRIBUTION WIDTH 13.8 % (11.6-14.8); WHITE BLOOD COUNT 6.3 K/UL (4.8-10.8)
[2019-05-31 06:59] LABS: ALANINE AMINOTRANSFERASE 215 U/L (12-78); ALBUMIN 2.1 G/DL (3.4-5.0); ALBUMIN/GLOBULIN RATIO 0.5 (1.0-2.7); ALKALINE PHOSPHATASE 59 U/L (46-116); ANION GAP 11 mmol/L (5-15); ASPARTATE AMINO TRANSFERASE 276 U/L (15-37); BILIRUBIN,TOTAL 0.4 MG/DL (0.2-1.0); BLOOD UREA NITROGEN 11 mg/dL (7-18); CALCIUM 8.5 MG/DL (8.5-10.1); CARBON DIOXIDE 23 MMOL/L (21-32); CHLORIDE 111 MMOL/L (98-107); CREATININE 1.2 MG/DL (0.55-1.30); POTASSIUM 3.6 MMOL/L (3.5-5.1); SODIUM 145 MMOL/L (136-145)
--- NOTE | 2019-05-31 07:00 | NUR ---
NURSE NOTES: spoke to doctor marquis. reported pt still has an elevated temp even with Tylenol given and ice packs placed under auxiliary. also reported that pt may need a picc line for IV access, pt is a hard stick. reported to doctor that pt has been sating 88% to 91% O2 on non rebreather with increased respirations (22 - 25 resp per min.). stated to order an ABG.
--- NOTE | 2019-05-31 07:10 | NUR ---
HAND-OFF: Report given to Padmini CHRISTIANSEN. Pt remains stable.
--- NOTE | 2019-05-31 07:11 | NUR ---
NURSE NOTES: Received patient in bed. patient on a 5 lead monitor, sinus rhythm. patient is tachypnic, rate of 32. on a non-rebreather 15L, O2 sat on the left index finger reads 96% after RN fixed it. notified to nurse director Samaria and Dr. Quiroga notified by Samaria about patient being tachypnic. Other vitals stable, afebrile at the moment, see vitals flowsheet. patient is alert awake, refuses to eat breakfast, by swinging his hand. patient took morning medications crushed and mixed with oatmeal, after RN convinced him to take his morning medications. IV site on the right thumb 24G is intact and patent. Siderails up, bed in lowest position, bed in locked position, call light within reach.
[2019-05-31 08:00] VITALS: BP 150/75
[2019-05-31] MEDS: Multivitamin w/Minerals tab ORAL SCH (08:25)
[2019-05-31] MEDS: Allopurinol 100mg Tab ORAL SCH (08:25)
[2019-05-31] MEDS: Ascorbic Acid 500mg tab ORAL SCH (08:25)
[2019-05-31 08:26] VITALS: BP 143/67
[2019-05-31] MEDS: metFORMIN 500mg tab ORAL SCH (08:26)
[2019-05-31] MEDS: Metoprolol Succinate XL 50mg tab ORAL SCH (08:26)
[2019-05-31] MEDS: Lisinopril 20mg tab ORAL SCH (08:26)
[2019-05-31] MEDS: Heparin 5000 units/ml inj SUBQ SCH (08:27)
--- NOTE | 2019-05-31 10:05 | NUR ---
NURSE NOTES: Dr. Quiroga at bedside, notified about the ABG result and patient being tachypnic on a rate of 35, NRB 15L on. Dr. Quiroga gave verbal order to transfer the patient to ICU and intubate patient. charge nurse Martina and Nursing preparation supervisor notified abuot the transfer. awaiting for the room.
--- NOTE | 2019-05-31 10:07 | NUR ---
CONTROL CHEMIST: REVIEW SI: PNA . COVID-19 VIRUS DETECTED . INCREASING RESP DISTRESS . HYPOXIA T 102.1 HR 111 RR 30 BP 150/62 SAT 90% NON-REBREATHER FIO2 100 MAG 1.7 AST 276 AST 215 ABG: PCO2 34.5 PO2 65.5 HCO3 21.7 SAT 92.4 BASE EXCESS -2.1 IS: ZOSYN IV Q8HR VITAMIN C 500MG ORAL DAILY MULTIVITAMIN ORAL DAILY D5W IV X1 ICU STATUS DCP: PATIENT IS FROM [facility]
--- NOTE | 2019-05-31 10:24 | NUR ---
*-* INSURANCE *-* ALL CLINICALS AND REVIEWS HAVE BEEN FAXED TO: RAJAN PECK REF#[id number] CM: OMER # [phone] EXT 1961 FAX# [phone] REVIEWS/CLINICALS
--- NOTE | 2019-05-31 10:29 | NUR ---
NURSE NOTES: ABSTRACT SEARCHER called as patient's heart rate is bradycardic on the monitor, HR of 43 and patient is tachypnic. RN did sternal rub and patient did not respond.
--- NOTE | 2019-05-31 10:30 | NUR ---
WELT TRIMMING MACHINE OPERATOR Note: WELT TRIMMING MACHINE OPERATOR was called at THU [id number], and notified MD. PT assessed upon entering room, bradycardia noted, primary nurse ЕЛЕНА Washington at bedside, transferred to ICU-K at 1055 with nurse monitoring and defib pads attached to PT. See WELT TRIMMING MACHINE OPERATOR documentation form for full report. MAMI Cope DO waiting in room to intubate with Caroline RT. Intubated immediately after arriving to ICU.
--- NOTE | 2019-05-31 10:35 | Pulmonology Progress Note ---
Assessment/Plan Assessment/Plan ASSESSMENT: This is a 79-year-old prison resident with history of diabetes, hypertension, stroke, chronic obstructive pulmonary disease 1. COVID-19 pneumonia. 2. ESBL E.coli UTI 3. Positive blood cultures with gram-positive cocci. 4. Diabetes. 5. Hypertension. 6. Chronic obstructive pulmonary disease. 7. Pulmonary edema PLAN: 1. Continue hydroxychloroquine and azithromycin. 2. Continue isolation. 3. Continue Zosyn and VAnco 4. O2 and pulmonary hygiene. 5. Will dc IV fluids 6. add diuresis 7. Reviewed CXR; has extensive infiltrates; suspect pulmonary edema 8. Discussed with [place]; pt is full code 9. Transfer to ICU; may need intubation. Ryan Quiroga M.D. Subjective Interval Events: Doing very poorly; ABG adequate but tachypnic Constitutional: Reports: no symptoms HEENT: Repors: no symptoms Respiratory: Reports: shortness of breath, dyspnea at rest Cardiovascular: Reports: no symptoms Gastrointestinal/Abdominal: Reports: no symptoms Genitourinary: Reports: no symptoms Allergies: Coded Allergies: No Known Allergies (Unverified , 01/11/16) Objective Last 24 Hour Vital Signs Date Time Temp Pulse Resp B/P (MAP) Pulse Ox O2 Delivery O2 Flow Rate FiO2 05/31/19 08:26 111 143/67 05/31/19 08:26 143/67 05/31/19 08:00 99.0 103 30 150/75 (100) 96 05/31/19 08:00 15.0 100 05/31/19 04:00 101.1 103 25 148/62 (90) 91 05/31/19 04:00 15.0 100 05/31/19 04:00 Non-Rebreather 15.0 05/31/19 04:00 108 05/31/19 01:00 102.1 05/31/19 00:00 111 05/31/19 00:00 15.0 100 05/31/19 00:00 Non-Rebreather 15.0 05/31/19 00:00 101.5 101 24 143/67 (92) 90 05/30/19 20:00 15.0 100 05/30/19 20:00 99.5 100 24 135/62 (86) 95 05/30/19 20:00 Non-Rebreather 15.0 05/30/19 20:00 97 05/30/19 16:00 Non-Rebreather 15.0 05/30/19 16:00 15.0 100 05/30/19 16:00 108 05/30/19 16:00 Non-Rebreather 15.0 05/30/19 16:00 99.7 94 24 159/66 (97) 90 05/30/19 12:00 101.1 106 24 142/72 (95) 90 05/30/19 12:00 15.0 100 05/30/19 12:00 Non-Rebreather 15.0 05/30/19 12:00 102 Intake and Output 05/30/19 05/31/19 19:00 07:00 Intake Total 400 ml 237.5 ml Output Total 600 ml Balance -200 ml 237.5 ml Intake Oral 400 ml IV Total 237.5 ml Output Urine Total 600 ml # Bowel Movements 1 General Appearance: no acute distress HEENT: normocephalic Respiratory/Chest: chest wall non-tender, decreased breath sounds, accessory muscle use Cardiovascular: normal peripheral pulses Abdomen: normal bowel sounds Laboratory Tests 05/31/19 05:00: White Blood Count 6.3, Red Blood Count 4.76, Hemoglobin 13.9L, Hematocrit 41.9L , Mean Corpuscular Volume 88, Mean Corpuscular Hemoglobin 29.2, Mean Corpuscular Hemoglobin Concent 33.2, Red Cell Distribution Width 13.8, Platelet Count 187, Mean Platelet Volume 5.8L, Neutrophils (%) (Auto) 77.7H, Lymphocytes (%) (Auto) 15.8L, Monocytes (%) (Auto) 4.9, Eosinophils (%) (Auto) 1.0, Basophils (%) (Auto) 0.7, Sodium Level 145, Potassium Level 3.6, Chloride Level 111H, Carbon Dioxide Level 23, Anion Gap 11, Blood Urea Nitrogen 11, Creatinine 1.2, Estimat Glomerular Filtration Rate > 60, Glucose Level 158H, Uric Acid 4.7 , Calcium Level 8.5, Magnesium Level 1.7L, Total Bilirubin 0.4, Aspartate Amino Transf (AST/SGOT) 276H, Alanine Aminotransferase (ALT/SGPT) 215H, Alkaline Phosphatase 59, Troponin I 0.046, Total Protein 6.6, Albumin 2.1L, Globulin 4.5 , Albumin/Globulin Ratio 0.5L 05/31/19 07:17: Arterial Blood pH 7.417, Arterial Blood Partial Pressure CO2 34.5L, Arterial Blood Partial Pressure O2 65.5L, Arterial Blood HCO3 21.7L, Arterial Blood Oxygen Saturation 92.4L, Arterial Blood Base Excess -2.1L, Laureano Test Positive Current Medications Medications (Trade) Dose Ordered Sig/Julita Route PRN Reason Start Time Stop Time Status Last Admin Dose Admin Acetaminophen (Tylenol) 650 mg Q6H PRN ORAL Prn Pain/Headache/Temp > 101 05/24/19 15:00 06/23/19 14:59 05/31/19 00:30 Allopurinol (Zyloprim) 100 mg DAILY ORAL 05/25/19 09:00 06/24/19 08:59 05/31/19 08:25 Ascorbic Acid (Vitamin C) 500 mg DAILY ORAL 05/25/19 09:00 06/24/19 08:59 05/31/19 08:25 Aspirin (ASA) 325 mg DAILY ORAL 05/25/19 09:00 07/09/19 08:59 05/31/19 08:27 Atorvastatin Calcium (Lipitor) 40 mg BEDTIME ORAL 05/24/19 21:00 08/22/19 20:59 05/30/19 21:48 Heparin Sodium (Porcine) (Heparin 5000 units/ml) 5,000 units EVERY 12 HOURS SUBQ 05/24/19 21:00 07/08/19 20:59 05/31/19 08:27 Lisinopril (PriniviL) 20 mg DAILY ORAL 05/25/19 09:00 06/24/19 08:59 05/31/19 08:26 Metformin HCl (Glucophage) 500 mg THREE TIMES A DAY ORAL 05/24/19 18:00 06/23/19 17:59 05/31/19 08:26 Metoprolol Succinate (Toprol XL) 50 mg DAILY ORAL 05/28/19 09:00 08/26/19 08:59 05/31/19 08:26 Multivitamins Therapeutic (Therapeutic Multivitamin) 1 ea DAILY ORAL 05/25/19 09:00 06/24/19 08:59 05/31/19 08:25 Nicotine (Nicoderm) 1 patch Q24H TDERMAL 05/27/19 08:00 08/25/19 07:59 05/31/19 08:27 Piperacillin Sod/ Tazobactam Sod 3.375 gm/Sodium Chloride 110 ml @ 27.5 mls/hr EVERY 8 HOURS IVPB 05/30/19 14:00 06/04/19 13:59 05/31/19 06:04 Ryan Quiroga MD May 31, 2019 10:35
--- NOTE | 2019-05-31 10:40 | NUR ---
CODE BLUE: See Code sheet which remains on paper.
[2019-05-31] MEDS ORDERED: NS 275ml ONE ×2 (11:04)
--- NOTE | 2019-05-31 11:05 | NUR ---
PRONOUNCEMENT: CPR started at 1040, Anatoliy, ER DO at bedside during code blue, Absence of spontaneous respirations, no cardiac or breath sounds on auscultation. Pupils fixed and dilated. No carotid pulse or chest movement. Patient at 1105. Family, Lavern Geller, was notified by GEORGIA Combs. Post mortem care done, name tag attached to R-toe, outside of bed, no belongings, dentures placed back into PT mouth, body taken down to [facility] with Corie Agrawal RN.
--- NOTE | 2019-05-31 11:35 | Emergency Room Report ---
History of Present Illness General Chief Complaint: General Complaint Source: Medical Record Present Illness Allergies: Coded Allergies: No Known Allergies (Unverified , 01/11/16) COVID-19 Screening Contact w/high risk pt: Yes Recent Travel to affected area: No Experienced COVID-19 symptoms?: Yes COVID-19 symptoms experienced: Cough Nursing Documentation-[facility] Past Medical History: No History, Except For Hx Cardiac Problems: Yes Hx Hypertension: Yes Hx COPD: Yes Hx Diabetes: Yes Hx Cancer: No Hx Gastrointestinal Problems: No Hx Neurological Problems: Yes Hx Cerebrovascular Accident: Yes Hx Dementia: Yes Hx Weakness: Yes Physical Exam Vital Signs Date Time Temp Pulse Resp B/P (MAP) Pulse Ox O2 Delivery O2 Flow Rate FiO2 05/27/19 07:48 101.5 96 18 132/91 (105) 96 05/27/19 08:00 Room Air 05/27/19 20:00 2.0 05/28/19 20:56 100 Medical Decision Making Diagnostic Impression: Primary Impression: URI (upper respiratory infection) Additional Impressions: Sepsis UTI (urinary tract infection) ER Course I was called to evaluate patient after cardiac arrest. Patient had prior history of Covid 19. He become more tachypneic and apparently rested subsequently. CPR was ongoing during code. Full protective equipment was used by participating staff. Patient was intubated with a glide scope. He was given medications as per code sheet. No return of spontaneous circulation. Bedside ultrasound confirmed asystole. Patient was pronounced . Family be notified by staff. Last Vital Signs Date Time Temp Pulse Resp B/P (MAP) Pulse Ox O2 Delivery O2 Flow Rate FiO2 05/31/19 08:26 111 143/67 05/31/19 08:00 99.0 30 96 05/31/19 08:00 15.0 100 05/31/19 04:00 Non-Rebreather Disposition: Condition: Referrals: Elian Thrasher MD (PCP) Ranjit Cope MD May 31, 2019 11:35
--- NOTE | 2019-06-01 03:30 | Progress Note ---
DATE: 05/31/2019 CARDIOLOGY PROGRESS NOTE SUBJECTIVE: Condition is deteriorating with regard to the patient's respiratory parameters. He is short of breath. Low-grade fevers persist, tachycardia noted. Respiratory rate up to 30. Blood pressure parameters stable. PHYSICAL EXAMINATION: LUNGS: Accessory muscle use, rhonchi. CARDIAC: Irregular rhythm. Rapid rate. EXTREMITIES: No edema. LABORATORY DATA: White count 6, hemoglobin 13.9. Potassium 3.6. BUN 11, creatinine 1.2. Troponin negative. Magnesium 1.7. ABG 7.41, 34, 65. IMPRESSION: 1. COVID-19 pneumonia. 2. Paroxysmal atrial fibrillation. 3. Acute myocardial ischemia. 4. Hypoxia. 5. Urinary tract infection. 6. Bacteremia. 7. Increased risk for endocarditis. 8. COPD, the patient is high risk. 9. Condition is serious. Prognosis guarded. PLAN: 1. We will continue on respiratory therapy. Oxygen mask. 2. Diuresis will be given. 3. Fluids have been discontinued. 4. May require mechanical ventilation. Mateus Styles M.D. DR: GISSELLE JOB#: [id number] CC:
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
--- NOTE | 2019-06-01 15:22 | NUR ---
*-* INSURANCE *-* ALL CLINICALS AND REVIEWS HAVE BEEN FAXED TO: [facility] REF#[id number] CM: OMER # [phone] EXT [id number] FAX# [phone] REVIEWS/CLINICALS
== END 2019-05-31 11:05 | disposition expired | DRG 871 ==
LOC: EDBD 17:53 → EMR 19:02 → 2W 19:50 → EDBEDREQ 05-24 10:04 → ICU 05-31 10:55
DX: A41.9 Sepsis, unspecified organism (principal); U07.1 COVID-19; J12.89 Other viral pneumonia; I50.33 Acute on chronic diastolic (congestive) heart failure; J96.01 Acute respiratory failure with hypoxia; N39.0 Urinary tract infection, site not specified; I69.359 Hemiplegia and hemiparesis following cerebral infarction affecting unspecified side; E87.0 Hyperosmolality and hypernatremia; Z16.12 Extended spectrum beta lactamase (ESBL) resistance; J06.9 Acute upper respiratory infection, unspecified; J44.9 Chronic obstructive pulmonary disease, unspecified; B96.20 Unspecified Escherichia coli [E. coli] as the cause of diseases classified elsewhere; I25.9 Chronic ischemic heart disease, unspecified; E11.9 Type 2 diabetes mellitus without complications; S01.81XA Laceration without foreign body of other part of head, initial encounter; Y04.8XXA Assault by other bodily force, initial encounter; Y92.129 Unspecified place in nursing home as the place of occurrence of the external cause; I48.0 Paroxysmal atrial fibrillation; I51.3 Intracardiac thrombosis, not elsewhere classified; I73.9 Peripheral vascular disease, unspecified
CPT/HCPCS: 36415; 36600; 71045; 80048; 80053; 81003; 82550; 82553; 82803; 82962; 83605; 83735; 83880; 84484; 84550; 85007; 85025; 86710; 87040; 87086; 87181; 87635; 92950; 93005; 96365; 99291; J7030; J8499